=== PATIENT | male | born 1945 | race Caucasian/White ===

== ENCOUNTER 2016-04-28 04:34 | Observation (INO) | payer MEDICARE, OTHER ==
[2016-04-28] MEDS ORDERED: Sodium Chloride 0.9% 10 ML Syringe FLUSH PRN ×3 (04:40→06:48)
[2016-04-28] MEDS ORDERED: Famotidine 20 MG/2 ML SDV IVPUSH ONE (04:40)
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
[2016-04-28] MEDS ORDERED: Diltiazem 25 MG/5 ML SDV IVPUSH ONE ×2 (04:42→04:59)
[2016-04-28 05:13] LABS: CHLORIDE,CL 101 mmol/L (98-107); SODIUM,NA 139 mmol/L (136-145)
[2016-04-28] MEDS ORDERED: Diltiazem 100 MG in Sodium Chloride 0.9% 100 ML IV SCH (05:15)
[2016-04-28] MEDS: Sodium Chloride 0.9% 1,000 ML IV SCH ×2 (05:18→15:51)
[2016-04-28] MEDS ORDERED: Furosemide 40 MG/4 ML VIAL IVPUSH ONE (05:24)
[2016-04-28] MEDS ORDERED: Metoprolol Tartrate 5 MG/5 ML SDV IVPUSH ONE (05:25)
[2016-04-28] MEDS ORDERED: cefTRIAXone 1 GM in Sodium Chloride 0.9% 100 ML IV SCH (05:45)
[2016-04-28] MEDS ORDERED: Iopamidol 755 Mg/ML 100 ML Bottle IVPUSH ONE (06:22)
[2016-04-28] MEDS: metroNIDAZOLE/Normal Saline 500 MG in Premix Bag 1 BAG IV SCH ×2 (06:36→13:47)
[2016-04-28] MEDS ORDERED: Bisacodyl 10 MG Supp RECTAL PRN (06:41)
[2016-04-28] MEDS ORDERED: Acetaminophen 325 MG Tab PO PRN (06:48)
[2016-04-28] MEDS ORDERED: Temazepam 15 MG Cap PO PRN (06:48)
[2016-04-28] MEDS ORDERED: Albuterol/Ipratropium 3.0-0.5 MG/3 ML Neb Soln NEB PRN (06:48)
[2016-04-28] MEDS ORDERED: Albuterol 0.083% 2.5 MG/3 ML Neb Soln INH PRN (06:48)
[2016-04-28] MEDS ORDERED: traMADol 50 MG Tab PO PRN (06:50)
[2016-04-28] MEDS ORDERED: Finasteride 5 MG Tab PO SCH (08:00)
[2016-04-28] MEDS ORDERED: Aspirin 81 MG Tab.EC PO SCH (08:00)
[2016-04-28] MEDS ORDERED: Enoxaparin 60 MG/0.6 ML Syringe SUBCUT SCH (08:00)
[2016-04-28] MEDS ORDERED: Budesonide 0.5 MG/2 ML Neb Susp NEB SCH (08:00)
[2016-04-28] MEDS ORDERED: Allopurinol 100 MG Tab PO SCH (08:00)
[2016-04-28] MEDS ORDERED: Magnesium Oxide 400 MG Tab PO SCH (08:00)
[2016-04-28] MEDS ORDERED: Magnesium Hydroxide 400 MG/5 ML Susp 30 ML Cup PO SCH (08:00)
[2016-04-28] MEDS: Potassium Chloride 20 MEQ Tab.ER PO SCH ×2 (09:49→12:40)
[2016-04-28] MEDS: Albuterol/Ipratropium 3.0-0.5 MG/3 ML Neb Soln NEB SCH ×2 (10:01→13:47)
[2016-04-28] MEDS ORDERED: Sodium Chloride 0.9% 250 ML IV ONE (15:30)
[2016-04-28 15:36] VITALS: BP 93/63
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
[2016-04-28] MEDS ORDERED: Simvastatin 20 MG Tab PO SCH (20:00)
== END 2016-04-28 16:35 ==
LOC: LL.ED 04:34 → LL.MS 06:15
PROVIDERS: ADMIT Family Medicine; ATTEND Emergency Medicine
DX: J69.0 Pneumonitis due to inhalation of food and vomit (principal); I48.91 Unspecified atrial fibrillation; I50.9 Heart failure, unspecified; R41.0 Disorientation, unspecified; E66.01 Morbid (severe) obesity due to excess calories; E83.42 Hypomagnesemia; E87.2 Acidosis; I49.3 Ventricular premature depolarization; I25.10 Atherosclerotic heart disease of native coronary artery without angina pectoris; E11.9 Type 2 diabetes mellitus without complications; E78.5 Hyperlipidemia, unspecified; E88.09 Other disorders of plasma-protein metabolism, not elsewhere classified; F41.8 Other specified anxiety disorders; M19.90 Unspecified osteoarthritis, unspecified site; K21.9 Gastro-esophageal reflux disease without esophagitis; Z79.82 Long term (current) use of aspirin; Z79.899 Other long term (current) drug therapy; R11.2 Nausea with vomiting, unspecified; Z91.048 Other nonmedicinal substance allergy status; I25.2 Old myocardial infarction; J44.9 Chronic obstructive pulmonary disease, unspecified; G47.30 Sleep apnea, unspecified; M10.9 Gout, unspecified; Z85.038 Personal history of other malignant neoplasm of large intestine; Z95.5 Presence of coronary angioplasty implant and graft; E03.9 Hypothyroidism, unspecified; Z87.891 Personal history of nicotine dependence; I44.7 Left bundle-branch block, unspecified
CPT/HCPCS: 36000; 36415; 70450; 71010; 80053; 80061; 82550; 82553; 83036; 83605; 83735; 83880; 84443; 84484; 84550; 85025; 85379; 85610; 85730; 86318; 87040; 93005; 96365; 96366; 96367; 96368; 96372; 96375; 99285; G0378; J0696; J1650; J1940; J7030; J7050; 94640; 94664; J3490; S0028

== ENCOUNTER 2016-05-03 11:55 | Inpatient (IN) | payer MEDICARE, OTHER ==
[2016-05-03] MEDS ORDERED: Albuterol/Ipratropium 3.0-0.5 MG/3 ML Neb Soln NEB PRN (18:53)
[2016-05-03] MEDS ORDERED: Bisacodyl 10 MG Supp RECTAL PRN (18:53)
[2016-05-03] MEDS ORDERED: Nitroglycerin 0.4 MG Tab.SL SL PRN (18:53)
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
[2016-05-03] MEDS: Doxycycline 100 MG Cap PO SCH (20:27)
[2016-05-03] MEDS: Simvastatin 20 MG Tab PO SCH (20:27)
[2016-05-03] MEDS: Cefuroxime 250 MG Tab PO SCH (20:27)
[2016-05-04] MEDS ORDERED: Acetaminophen 325 MG Tab PO SCH
[2016-05-04] MEDS ORDERED: Rivaroxaban 10 MG Tab PO ONE ×2 (00:45→19:30)
[2016-05-04] MEDS: traMADol 50 MG Tab PO PRN (03:06)
[2016-05-04] MEDS: Polyethylene Glycol 3350 Powder 17 GM Packet PO SCH (07:43)
[2016-05-04] MEDS: Cefuroxime 250 MG Tab PO SCH ×2 (07:44→17:31)
[2016-05-04] MEDS: Multivitamin Tab PO SCH (07:44)
[2016-05-04] MEDS: Bumetanide 1 MG Tab PO SCH (07:45)
[2016-05-04] MEDS: Finasteride 5 MG Tab PO SCH (07:45)
[2016-05-04] MEDS: Aspirin 81 MG Tab.EC PO SCH (07:45)
[2016-05-04] MEDS: Omeprazole 20 MG Cap.CR PO SCH (07:46)
[2016-05-04] MEDS: Metoprolol Succinate 25 MG Tab.ER PO SCH (07:46)
[2016-05-04] MEDS: Doxycycline 100 MG Cap PO SCH ×2 (07:47→17:31)
[2016-05-04] MEDS: Allopurinol 100 MG Tab PO SCH (07:47)
[2016-05-04] MEDS ORDERED: Magnesium Hydroxide 400 MG/5 ML Susp 30 ML Cup PO SCH ×2 (08:00→14:00)
[2016-05-04] MEDS ORDERED: Tamsulosin 0.4 MG Cap.ER PO SCH (08:00)
[2016-05-04] MEDS ORDERED: Sennosides 8.6 MG Tab PO SCH (08:00)
[2016-05-04] MEDS ORDERED: Bumetanide 1 MG Tab PO PRN (14:00)
[2016-05-04] MEDS: Rivaroxaban 10 MG Tab PO SCH (17:31)
[2016-05-04] MEDS: Tamsulosin 0.4 MG Cap.ER PO SCH (20:23)
[2016-05-04] MEDS: Simvastatin 20 MG Tab PO SCH (20:23)
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
[2016-05-04] MEDS: Acetaminophen 325 MG Tab PO PRN (23:47)
[2016-05-05] MEDS: traMADol 50 MG Tab PO PRN ×2 (03:21→17:25)
[2016-05-05] MEDS: Cefuroxime 250 MG Tab PO SCH ×2 (07:53→17:24)
[2016-05-05] MEDS: Finasteride 5 MG Tab PO SCH (07:53)
[2016-05-05] MEDS: Doxycycline 100 MG Cap PO SCH ×2 (07:53→17:24)
[2016-05-05] MEDS: Bumetanide 1 MG Tab PO SCH (07:53)
[2016-05-05] MEDS: Metoprolol Succinate 25 MG Tab.ER PO SCH (07:54)
[2016-05-05] MEDS: Allopurinol 100 MG Tab PO SCH (07:54)
[2016-05-05] MEDS: Omeprazole 20 MG Cap.CR PO SCH (07:54)
[2016-05-05] MEDS: Aspirin 81 MG Tab.EC PO SCH (07:54)
[2016-05-05] MEDS: Multivitamin Tab PO SCH (07:54)
[2016-05-05] MEDS: Polyethylene Glycol 3350 Powder 17 GM Packet PO SCH ×2 (07:55→07:59)
[2016-05-05] MEDS: Rivaroxaban 10 MG Tab PO SCH (17:24)
[2016-05-05] MEDS: Simvastatin 20 MG Tab PO SCH (21:41)
[2016-05-05] MEDS: Tamsulosin 0.4 MG Cap.ER PO SCH (21:41)
[2016-05-06] MEDS: Temazepam 15 MG Cap PO PRN ×2 (00:25→22:19)
[2016-05-06] MEDS ORDERED: Menthol/Methyl Salicylate 85 GM Tube TOP PRN ×2 (05:58→07:00)
[2016-05-06] MEDS: traMADol 50 MG Tab PO PRN ×2 (06:04→22:19)
[2016-05-06] MEDS: Acetaminophen 325 MG Tab PO PRN (06:05)
[2016-05-06] MEDS: Bumetanide 1 MG Tab PO SCH (07:53)
[2016-05-06] MEDS: Aspirin 81 MG Tab.EC PO SCH (07:54)
[2016-05-06] MEDS: Omeprazole 20 MG Cap.CR PO SCH (07:54)
[2016-05-06] MEDS: Allopurinol 100 MG Tab PO SCH (07:56)
[2016-05-06] MEDS: Finasteride 5 MG Tab PO SCH (07:56)
[2016-05-06] MEDS: Doxycycline 100 MG Cap PO SCH ×2 (07:57→18:03)
[2016-05-06] MEDS: Multivitamin Tab PO SCH (07:57)
[2016-05-06] MEDS: Metoprolol Succinate 25 MG Tab.ER PO SCH (07:57)
[2016-05-06] MEDS: Polyethylene Glycol 3350 Powder 17 GM Packet PO SCH (07:58)
[2016-05-06] MEDS: Cefuroxime 250 MG Tab PO SCH ×2 (08:12→18:03)
[2016-05-06] MEDS: Rivaroxaban 10 MG Tab PO SCH (18:03)
[2016-05-06] MEDS: Tamsulosin 0.4 MG Cap.ER PO SCH (19:25)
[2016-05-06] MEDS: Simvastatin 20 MG Tab PO SCH (19:25)
[2016-05-07] MEDS ORDERED: Hydrocortisone 1% Crm 1.5 GM Packet TOP PRN (04:13)
[2016-05-07] MEDS: traMADol 50 MG Tab PO PRN ×2 (06:26→20:47)
[2016-05-07] MEDS: Allopurinol 100 MG Tab PO SCH (07:39)
[2016-05-07] MEDS: Aspirin 81 MG Tab.EC PO SCH (07:41)
[2016-05-07] MEDS: Doxycycline 100 MG Cap PO SCH ×2 (07:42→17:57)
[2016-05-07] MEDS: Finasteride 5 MG Tab PO SCH (07:43)
[2016-05-07] MEDS: Cefuroxime 250 MG Tab PO SCH ×2 (07:43→17:58)
[2016-05-07] MEDS: Omeprazole 20 MG Cap.CR PO SCH (07:44)
[2016-05-07] MEDS: Polyethylene Glycol 3350 Powder 17 GM Packet PO SCH (07:46)
[2016-05-07] MEDS: Multivitamin Tab PO SCH (07:47)
[2016-05-07] MEDS: Bumetanide 1 MG Tab PO SCH (08:02)
[2016-05-07] MEDS: Metoprolol Succinate 25 MG Tab.ER PO SCH (08:02)
[2016-05-07] MEDS: Rivaroxaban 10 MG Tab PO SCH (17:57)
[2016-05-07] MEDS: Tamsulosin 0.4 MG Cap.ER PO SCH (19:46)
[2016-05-07] MEDS: Simvastatin 20 MG Tab PO SCH (19:46)
[2016-05-07] MEDS: Temazepam 15 MG Cap PO PRN (20:47)
[2016-05-08] MEDS: traMADol 50 MG Tab PO PRN ×3 (04:07→19:45)
[2016-05-08] MEDS: Metoprolol Succinate 25 MG Tab.ER PO SCH (08:13)
[2016-05-08] MEDS: Allopurinol 100 MG Tab PO SCH (08:13)
[2016-05-08] MEDS: Cefuroxime 250 MG Tab PO SCH ×2 (08:14→17:22)
[2016-05-08] MEDS: Omeprazole 20 MG Cap.CR PO SCH (08:14)
[2016-05-08] MEDS: Finasteride 5 MG Tab PO SCH (08:14)
[2016-05-08] MEDS: Bumetanide 1 MG Tab PO SCH (08:14)
[2016-05-08] MEDS: Doxycycline 100 MG Cap PO SCH ×2 (08:15→17:22)
[2016-05-08] MEDS: Polyethylene Glycol 3350 Powder 17 GM Packet PO SCH (08:15)
[2016-05-08] MEDS: Multivitamin Tab PO SCH (08:15)
[2016-05-08] MEDS: Aspirin 81 MG Tab.EC PO SCH (08:15)
[2016-05-08] MEDS: Rivaroxaban 10 MG Tab PO SCH (17:21)
[2016-05-08] MEDS: Tamsulosin 0.4 MG Cap.ER PO SCH (19:45)
[2016-05-08] MEDS: Simvastatin 20 MG Tab PO SCH (19:45)
[2016-05-08] MEDS ORDERED: Polyethylene Glycol 3350 Powder 17 GM Packet PO PRN (20:33)
[2016-05-08] MEDS: Temazepam 15 MG Cap PO PRN (21:30)
[2016-05-09] MEDS: traMADol 50 MG Tab PO PRN ×3 (00:57→21:04)
[2016-05-09] MEDS: Finasteride 5 MG Tab PO SCH (07:43)
[2016-05-09] MEDS: Metoprolol Succinate 25 MG Tab.ER PO SCH (07:43)
[2016-05-09] MEDS: Doxycycline 100 MG Cap PO SCH ×2 (07:45→17:52)
[2016-05-09] MEDS: Allopurinol 100 MG Tab PO SCH (07:45)
[2016-05-09] MEDS: Multivitamin Tab PO SCH (07:45)
[2016-05-09] MEDS: Bumetanide 1 MG Tab PO SCH (07:45)
[2016-05-09] MEDS: Cefuroxime 250 MG Tab PO SCH ×2 (07:45→17:51)
[2016-05-09] MEDS: Omeprazole 20 MG Cap.CR PO SCH (07:46)
[2016-05-09] MEDS: Aspirin 81 MG Tab.EC PO SCH (07:46)
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
[2016-05-09] MEDS: Rivaroxaban 10 MG Tab PO SCH (17:52)
[2016-05-09] MEDS: Simvastatin 20 MG Tab PO SCH (19:21)
[2016-05-09] MEDS: Tamsulosin 0.4 MG Cap.ER PO SCH (19:21)
[2016-05-10] MEDS: Cefuroxime 250 MG Tab PO SCH ×2 (07:28→17:15)
[2016-05-10] MEDS: Omeprazole 20 MG Cap.CR PO SCH (07:29)
[2016-05-10] MEDS: Bumetanide 1 MG Tab PO SCH (07:30)
[2016-05-10] MEDS: Multivitamin Tab PO SCH (07:30)
[2016-05-10] MEDS: Allopurinol 100 MG Tab PO SCH (07:30)
[2016-05-10] MEDS: Metoprolol Succinate 25 MG Tab.ER PO SCH (07:31)
[2016-05-10] MEDS: Doxycycline 100 MG Cap PO SCH ×2 (07:31→17:15)
[2016-05-10] MEDS: Aspirin 81 MG Tab.EC PO SCH (07:32)
[2016-05-10] MEDS: Finasteride 5 MG Tab PO SCH (07:32)
[2016-05-10] MEDS: Rivaroxaban 10 MG Tab PO SCH (17:15)
[2016-05-10] MEDS: Tamsulosin 0.4 MG Cap.ER PO SCH (19:40)
[2016-05-10] MEDS: Simvastatin 20 MG Tab PO SCH (19:40)
[2016-05-10] MEDS: traMADol 50 MG Tab PO PRN (22:22)
[2016-05-11] MEDS: Temazepam 15 MG Cap PO PRN ×2 (00:54→22:59)
[2016-05-11] MEDS: Doxycycline 100 MG Cap PO SCH ×2 (07:29→18:31)
[2016-05-11] MEDS: Allopurinol 100 MG Tab PO SCH (07:29)
[2016-05-11] MEDS: Cefuroxime 250 MG Tab PO SCH ×2 (07:29→18:31)
[2016-05-11] MEDS: Bumetanide 1 MG Tab PO SCH (07:29)
[2016-05-11] MEDS: Finasteride 5 MG Tab PO SCH (07:30)
[2016-05-11] MEDS: Omeprazole 20 MG Cap.CR PO SCH (07:30)
[2016-05-11] MEDS: Multivitamin Tab PO SCH (07:30)
[2016-05-11] MEDS: Metoprolol Succinate 25 MG Tab.ER PO SCH (07:30)
[2016-05-11] MEDS: Aspirin 81 MG Tab.EC PO SCH (07:30)
[2016-05-11] MEDS: traMADol 50 MG Tab PO PRN ×2 (08:47→22:59)
[2016-05-11] MEDS: Rivaroxaban 10 MG Tab PO SCH (18:31)
[2016-05-11] MEDS: Tamsulosin 0.4 MG Cap.ER PO SCH (19:31)
[2016-05-11] MEDS: Simvastatin 20 MG Tab PO SCH (19:31)
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
[2016-05-12 07:29] LABS: CHLORIDE,CL 101 mmol/L (98-107); SODIUM,NA 139 mmol/L (136-145)
[2016-05-12] MEDS: Cefuroxime 250 MG Tab PO SCH ×2 (07:57→17:12)
[2016-05-12] MEDS: Aspirin 81 MG Tab.EC PO SCH (07:57)
[2016-05-12] MEDS: Omeprazole 20 MG Cap.CR PO SCH (07:57)
[2016-05-12] MEDS: Bumetanide 1 MG Tab PO SCH (07:57)
[2016-05-12] MEDS: Finasteride 5 MG Tab PO SCH (07:58)
[2016-05-12] MEDS: Multivitamin Tab PO SCH (07:58)
[2016-05-12] MEDS: Metoprolol Succinate 25 MG Tab.ER PO SCH (07:58)
[2016-05-12] MEDS: Allopurinol 100 MG Tab PO SCH (07:58)
[2016-05-12] MEDS: Doxycycline 100 MG Cap PO SCH ×2 (07:58→17:13)
[2016-05-12] MEDS: traMADol 50 MG Tab PO PRN (12:11)
[2016-05-12] MEDS ORDERED: traMADol 50 MG Tab PO ONE (15:50)
[2016-05-12] MEDS: Rivaroxaban 10 MG Tab PO SCH (17:13)
[2016-05-12] MEDS: Tamsulosin 0.4 MG Cap.ER PO SCH (19:52)
[2016-05-12] MEDS: Simvastatin 20 MG Tab PO SCH (19:52)
[2016-05-12] MEDS: Temazepam 15 MG Cap PO PRN (21:44)
[2016-05-13] MEDS: Multivitamin Tab PO SCH (08:31)
[2016-05-13] MEDS: Bumetanide 1 MG Tab PO SCH (08:31)
[2016-05-13] MEDS: Finasteride 5 MG Tab PO SCH (08:31)
[2016-05-13] MEDS: Omeprazole 20 MG Cap.CR PO SCH (08:31)
[2016-05-13] MEDS: Aspirin 81 MG Tab.EC PO SCH (08:31)
[2016-05-13] MEDS: Allopurinol 100 MG Tab PO SCH (08:32)
[2016-05-13] MEDS: Metoprolol Succinate 25 MG Tab.ER PO SCH (08:32)
[2016-05-13] MEDS: traMADol 50 MG Tab PO PRN (10:55)
[2016-05-13] MEDS: Rivaroxaban 10 MG Tab PO SCH (17:23)
[2016-05-13] MEDS: Simvastatin 20 MG Tab PO SCH (20:28)
[2016-05-13] MEDS: Tamsulosin 0.4 MG Cap.ER PO SCH (20:28)
[2016-05-13] MEDS: Temazepam 15 MG Cap PO PRN (22:16)
[2016-05-14] MEDS: Multivitamin Tab PO SCH (08:53)
[2016-05-14] MEDS: Allopurinol 100 MG Tab PO SCH (08:54)
[2016-05-14] MEDS: Omeprazole 20 MG Cap.CR PO SCH (08:54)
[2016-05-14] MEDS: Aspirin 81 MG Tab.EC PO SCH (08:54)
[2016-05-14] MEDS: Metoprolol Succinate 25 MG Tab.ER PO SCH (08:54)
[2016-05-14] MEDS: Bumetanide 1 MG Tab PO SCH (08:54)
[2016-05-14] MEDS: Finasteride 5 MG Tab PO SCH (08:54)
[2016-05-14] MEDS: Acetaminophen 325 MG Tab PO PRN (15:02)
[2016-05-14] MEDS: Rivaroxaban 10 MG Tab PO SCH (17:16)
[2016-05-14] MEDS: Simvastatin 20 MG Tab PO SCH (19:36)
[2016-05-14] MEDS: Tamsulosin 0.4 MG Cap.ER PO SCH (19:36)
[2016-05-15] MEDS: Multivitamin Tab PO SCH (08:03)
[2016-05-15] MEDS: Omeprazole 20 MG Cap.CR PO SCH (08:03)
[2016-05-15] MEDS: Aspirin 81 MG Tab.EC PO SCH (08:03)
[2016-05-15] MEDS: Metoprolol Succinate 25 MG Tab.ER PO SCH (08:03)
[2016-05-15] MEDS: Finasteride 5 MG Tab PO SCH (08:03)
[2016-05-15] MEDS: Bumetanide 1 MG Tab PO SCH (08:04)
[2016-05-15] MEDS: Allopurinol 100 MG Tab PO SCH (08:04)
[2016-05-15] MEDS: traMADol 50 MG Tab PO PRN (12:57)
[2016-05-15] MEDS: Acetaminophen 325 MG Tab PO PRN (12:59)
[2016-05-15] MEDS: Rivaroxaban 10 MG Tab PO SCH (17:34)
[2016-05-15] MEDS: Simvastatin 20 MG Tab PO SCH (19:29)
[2016-05-15] MEDS: Tamsulosin 0.4 MG Cap.ER PO SCH (19:29)
[2016-05-16] MEDS: Multivitamin Tab PO SCH (07:40)
[2016-05-16] MEDS: Omeprazole 20 MG Cap.CR PO SCH (07:40)
[2016-05-16] MEDS: Aspirin 81 MG Tab.EC PO SCH (07:41)
[2016-05-16] MEDS: Allopurinol 100 MG Tab PO SCH (07:41)
[2016-05-16] MEDS: Bumetanide 1 MG Tab PO SCH (07:41)
[2016-05-16] MEDS: Finasteride 5 MG Tab PO SCH (07:41)
[2016-05-16] MEDS: Metoprolol Succinate 25 MG Tab.ER PO SCH (07:41)
[2016-05-16] MEDS: traMADol 50 MG Tab PO PRN ×3 (09:56→21:05)
[2016-05-16] MEDS: Acetaminophen 325 MG Tab PO PRN ×2 (09:57→19:08)
[2016-05-16] MEDS: Magnesium Oxide 400 MG Tab PO SCH ×2 (12:27→17:20)
[2016-05-16] MEDS: Rivaroxaban 10 MG Tab PO SCH (17:20)
[2016-05-16] MEDS: Tamsulosin 0.4 MG Cap.ER PO SCH (19:08)
[2016-05-16] MEDS: Simvastatin 20 MG Tab PO SCH (19:08)
[2016-05-17] MEDS: Bumetanide 1 MG Tab PO SCH (08:36)
[2016-05-17] MEDS: Metoprolol Succinate 25 MG Tab.ER PO SCH (08:36)
[2016-05-17] MEDS: Finasteride 5 MG Tab PO SCH (08:36)
[2016-05-17] MEDS: Omeprazole 20 MG Cap.CR PO SCH (08:36)
[2016-05-17] MEDS: Allopurinol 100 MG Tab PO SCH (08:36)
[2016-05-17] MEDS: Multivitamin Tab PO SCH (08:36)
[2016-05-17] MEDS: Magnesium Oxide 400 MG Tab PO SCH ×2 (08:36→17:34)
[2016-05-17] MEDS: Aspirin 81 MG Tab.EC PO SCH (08:37)
[2016-05-17] MEDS ORDERED: Metoprolol Succinate 25 MG Tab.ER PO ONE (14:30)
[2016-05-17] MEDS: Acetaminophen 325 MG Tab PO PRN (15:40)
[2016-05-17] MEDS: traMADol 50 MG Tab PO PRN (15:41)
[2016-05-17] MEDS: Rivaroxaban 10 MG Tab PO SCH (17:34)
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
[2016-05-17] MEDS: Simvastatin 20 MG Tab PO SCH (20:05)
[2016-05-17] MEDS: Tamsulosin 0.4 MG Cap.ER PO SCH (20:05)
[2016-05-18] MEDS: Metoprolol Succinate 50 MG Tab.ER PO SCH (07:26)
[2016-05-18] MEDS: Allopurinol 100 MG Tab PO SCH (07:26)
[2016-05-18] MEDS: Magnesium Oxide 400 MG Tab PO SCH ×2 (07:27→20:06)
[2016-05-18] MEDS: Omeprazole 20 MG Cap.CR PO SCH (07:27)
[2016-05-18] MEDS: Bumetanide 1 MG Tab PO SCH (07:27)
[2016-05-18] MEDS: Aspirin 81 MG Tab.EC PO SCH (07:27)
[2016-05-18] MEDS: Multivitamin Tab PO SCH (07:27)
[2016-05-18] MEDS: Finasteride 5 MG Tab PO SCH (07:27)
[2016-05-18] MEDS: traMADol 50 MG Tab PO PRN (11:46)
[2016-05-18] MEDS: Tamsulosin 0.4 MG Cap.ER PO SCH (20:06)
[2016-05-18] MEDS: Rivaroxaban 10 MG Tab PO SCH (20:06)
[2016-05-18] MEDS: Simvastatin 20 MG Tab PO SCH (20:06)
[2016-05-19] MEDS: Ondansetron 4 MG Tab.DIS PO PRN (05:03)
[2016-05-19] MEDS: traMADol 50 MG Tab PO PRN (05:40)
[2016-05-19] MEDS: Finasteride 5 MG Tab PO SCH (07:39)
[2016-05-19] MEDS: Aspirin 81 MG Tab.EC PO SCH (07:39)
[2016-05-19] MEDS: Bumetanide 1 MG Tab PO SCH (07:40)
[2016-05-19] MEDS: Metoprolol Succinate 50 MG Tab.ER PO SCH (07:40)
[2016-05-19] MEDS: Omeprazole 20 MG Cap.CR PO SCH (07:40)
[2016-05-19] MEDS: Allopurinol 100 MG Tab PO SCH (07:42)
[2016-05-19] MEDS: Multivitamin Tab PO SCH (07:42)
[2016-05-19] MEDS: Magnesium Oxide 400 MG Tab PO SCH ×2 (07:42→17:08)
[2016-05-19] MEDS: Rivaroxaban 10 MG Tab PO SCH (17:08)
[2016-05-19] MEDS: Simvastatin 20 MG Tab PO SCH (19:48)
[2016-05-19] MEDS: Tamsulosin 0.4 MG Cap.ER PO SCH (19:48)
[2016-05-20] MEDS: Multivitamin Tab PO SCH (07:53)
[2016-05-20] MEDS: Omeprazole 20 MG Cap.CR PO SCH (07:53)
[2016-05-20] MEDS: Magnesium Oxide 400 MG Tab PO SCH ×2 (07:54→17:31)
[2016-05-20] MEDS: Aspirin 81 MG Tab.EC PO SCH (07:54)
[2016-05-20] MEDS: Finasteride 5 MG Tab PO SCH (07:54)
[2016-05-20] MEDS: Bumetanide 1 MG Tab PO SCH (07:54)
[2016-05-20] MEDS: Allopurinol 100 MG Tab PO SCH (07:54)
[2016-05-20] MEDS: Metoprolol Succinate 50 MG Tab.ER PO SCH (07:59)
[2016-05-20] MEDS: Acetaminophen 325 MG Tab PO PRN (08:59)
[2016-05-20] MEDS: traMADol 50 MG Tab PO PRN (08:59)
[2016-05-20] MEDS: Metoprolol Succinate 25 MG Tab.ER PO SCH (10:30)
[2016-05-20] MEDS: Fluconazole 100 MG Tab PO SCH (10:30)
[2016-05-20] MEDS: Nystatin Topical Powder 15 GM Bottle TOP SCH ×2 (10:33→17:32)
[2016-05-20] MEDS ORDERED: Digoxin 250 MCG Tab PO ONE ×2 (12:00→20:00)
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
[2016-05-20] MEDS: Rivaroxaban 10 MG Tab PO SCH (17:31)
[2016-05-20] MEDS: Simvastatin 20 MG Tab PO SCH (19:26)
[2016-05-21 07:37] LABS: CHLORIDE,CL 99 mmol/L (98-107); SODIUM,NA 138 mmol/L (136-145)
[2016-05-21] MEDS: Aspirin 81 MG Tab.EC PO SCH (07:40)
[2016-05-21] MEDS: Nystatin Topical Powder 15 GM Bottle TOP SCH ×2 (07:40→17:23)
[2016-05-21] MEDS: Magnesium Oxide 400 MG Tab PO SCH ×2 (07:40→17:21)
[2016-05-21] MEDS: Fluconazole 100 MG Tab PO SCH (07:40)
[2016-05-21] MEDS: Omeprazole 20 MG Cap.CR PO SCH (07:41)
[2016-05-21] MEDS: Allopurinol 100 MG Tab PO SCH (07:41)
[2016-05-21] MEDS: Metoprolol Succinate 25 MG Tab.ER PO SCH (07:41)
[2016-05-21] MEDS: Bumetanide 1 MG Tab PO SCH (07:41)
[2016-05-21] MEDS: Finasteride 5 MG Tab PO SCH (07:41)
[2016-05-21] MEDS: Multivitamin Tab PO SCH (07:41)
[2016-05-21] MEDS: traMADol 50 MG Tab PO PRN ×2 (14:40→21:20)
[2016-05-21] MEDS: Rivaroxaban 10 MG Tab PO SCH (17:21)
[2016-05-21] MEDS: Digoxin 125 MCG Tab PO SCH (17:22)
[2016-05-21] MEDS: Simvastatin 20 MG Tab PO SCH (21:19)
[2016-05-21] MEDS: Nystatin Topical Powder 15 GM Bottle TOP PRN (21:20)
[2016-05-21] MEDS: Temazepam 15 MG Cap PO PRN (21:20)
[2016-05-22] MEDS: Magnesium Oxide 400 MG Tab PO SCH ×2 (08:56→17:17)
[2016-05-22] MEDS: Finasteride 5 MG Tab PO SCH (08:56)
[2016-05-22] MEDS: Metoprolol Succinate 25 MG Tab.ER PO SCH (08:56)
[2016-05-22] MEDS: Fluconazole 100 MG Tab PO SCH (08:56)
[2016-05-22] MEDS: Bumetanide 1 MG Tab PO SCH (08:56)
[2016-05-22] MEDS: Aspirin 81 MG Tab.EC PO SCH (08:57)
[2016-05-22] MEDS: Omeprazole 20 MG Cap.CR PO SCH (08:57)
[2016-05-22] MEDS: Multivitamin Tab PO SCH (08:57)
[2016-05-22] MEDS: Allopurinol 100 MG Tab PO SCH (08:57)
[2016-05-22] MEDS: Nystatin Topical Powder 15 GM Bottle TOP SCH ×2 (09:30→17:17)
[2016-05-22] MEDS: Digoxin 125 MCG Tab PO SCH (17:16)
[2016-05-22] MEDS: Rivaroxaban 10 MG Tab PO SCH (17:17)
[2016-05-22] MEDS: Simvastatin 20 MG Tab PO SCH (19:38)
[2016-05-23] MEDS: Multivitamin Tab PO SCH (07:48)
[2016-05-23] MEDS: Metoprolol Succinate 25 MG Tab.ER PO SCH (07:48)
[2016-05-23] MEDS: Bumetanide 1 MG Tab PO SCH (07:48)
[2016-05-23] MEDS: Fluconazole 100 MG Tab PO SCH (07:48)
[2016-05-23] MEDS: Finasteride 5 MG Tab PO SCH (07:48)
[2016-05-23] MEDS: Aspirin 81 MG Tab.EC PO SCH (07:49)
[2016-05-23] MEDS: Magnesium Oxide 400 MG Tab PO SCH ×2 (07:49→17:16)
[2016-05-23] MEDS: Omeprazole 20 MG Cap.CR PO SCH (07:49)
[2016-05-23] MEDS: Nystatin Topical Powder 15 GM Bottle TOP SCH ×2 (07:49→17:16)
[2016-05-23] MEDS: Allopurinol 100 MG Tab PO SCH (07:49)
[2016-05-23] MEDS: Digoxin 125 MCG Tab PO SCH (17:16)
[2016-05-23] MEDS: Rivaroxaban 10 MG Tab PO SCH (17:16)
[2016-05-23] MEDS: traMADol 50 MG Tab PO PRN (20:19)
[2016-05-23] MEDS: Acetaminophen 325 MG Tab PO PRN (20:20)
[2016-05-23] MEDS: Simvastatin 20 MG Tab PO SCH (20:22)
[2016-05-23] MEDS: Temazepam 15 MG Cap PO PRN (20:22)
[2016-05-24] MEDS: Bumetanide 1 MG Tab PO SCH (07:58)
[2016-05-24] MEDS: Fluconazole 100 MG Tab PO SCH (07:58)
[2016-05-24] MEDS: Omeprazole 20 MG Cap.CR PO SCH (07:59)
[2016-05-24] MEDS: Finasteride 5 MG Tab PO SCH (07:59)
[2016-05-24] MEDS: Aspirin 81 MG Tab.EC PO SCH (07:59)
[2016-05-24] MEDS: Magnesium Oxide 400 MG Tab PO SCH ×2 (07:59→19:28)
[2016-05-24] MEDS: Allopurinol 100 MG Tab PO SCH (08:00)
[2016-05-24] MEDS: Nystatin Topical Powder 15 GM Bottle TOP SCH ×2 (08:00→19:28)
[2016-05-24] MEDS: Metoprolol Succinate 25 MG Tab.ER PO SCH (08:00)
[2016-05-24] MEDS: Multivitamin Tab PO SCH (08:00)
[2016-05-24] MEDS: traMADol 50 MG Tab PO PRN ×2 (08:05→21:43)
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
[2016-05-24] MEDS: Rivaroxaban 10 MG Tab PO SCH (19:28)
[2016-05-24] MEDS: Digoxin 125 MCG Tab PO SCH (19:28)
[2016-05-24] MEDS: Simvastatin 20 MG Tab PO SCH (19:29)
[2016-05-24] MEDS: Temazepam 15 MG Cap PO PRN (21:43)
[2016-05-25] MEDS: Allopurinol 100 MG Tab PO SCH (07:53)
[2016-05-25] MEDS: Nystatin Topical Powder 15 GM Bottle TOP SCH ×2 (07:53→17:31)
[2016-05-25] MEDS: Bumetanide 1 MG Tab PO SCH (07:53)
[2016-05-25] MEDS: Finasteride 5 MG Tab PO SCH (07:54)
[2016-05-25] MEDS: Omeprazole 20 MG Cap.CR PO SCH (07:54)
[2016-05-25] MEDS: Magnesium Oxide 400 MG Tab PO SCH ×2 (07:54→17:31)
[2016-05-25] MEDS: Aspirin 81 MG Tab.EC PO SCH (07:54)
[2016-05-25] MEDS: Multivitamin Tab PO SCH (07:54)
[2016-05-25] MEDS: Fluconazole 100 MG Tab PO SCH (07:54)
[2016-05-25] MEDS: Metoprolol Succinate 25 MG Tab.ER PO SCH (07:54)
[2016-05-25] MEDS: traMADol 50 MG Tab PO PRN ×2 (11:49→22:57)
[2016-05-25] MEDS: Rivaroxaban 10 MG Tab PO SCH (17:30)
[2016-05-25] MEDS: Digoxin 125 MCG Tab PO SCH (17:30)
[2016-05-25] MEDS: Simvastatin 20 MG Tab PO SCH (20:33)
[2016-05-25] MEDS: Temazepam 15 MG Cap PO PRN (22:06)
[2016-05-26] MEDS: Bumetanide 1 MG Tab PO SCH (08:23)
[2016-05-26] MEDS: Fluconazole 100 MG Tab PO SCH (08:23)
[2016-05-26] MEDS: Multivitamin Tab PO SCH (08:23)
[2016-05-26] MEDS: Omeprazole 20 MG Cap.CR PO SCH (08:24)
[2016-05-26] MEDS: Magnesium Oxide 400 MG Tab PO SCH ×2 (08:24→17:41)
[2016-05-26] MEDS: Nystatin Topical Powder 15 GM Bottle TOP SCH ×2 (08:24→19:42)
[2016-05-26] MEDS: Finasteride 5 MG Tab PO SCH (08:24)
[2016-05-26] MEDS: Aspirin 81 MG Tab.EC PO SCH (08:24)
[2016-05-26] MEDS: Metoprolol Succinate 25 MG Tab.ER PO SCH (08:25)
[2016-05-26] MEDS: Allopurinol 100 MG Tab PO SCH (08:25)
[2016-05-26] MEDS: Acetaminophen 325 MG Tab PO PRN (12:13)
[2016-05-26] MEDS: traMADol 50 MG Tab PO PRN ×2 (12:14→21:50)
[2016-05-26] MEDS: Rivaroxaban 10 MG Tab PO SCH (17:41)
[2016-05-26] MEDS: Digoxin 125 MCG Tab PO SCH (17:41)
[2016-05-26] MEDS: Simvastatin 20 MG Tab PO SCH (19:42)
[2016-05-26] MEDS: Temazepam 15 MG Cap PO PRN (22:06)
[2016-05-27] MEDS: Metoprolol Succinate 25 MG Tab.ER PO SCH (08:50)
[2016-05-27] MEDS: Multivitamin Tab PO SCH (08:52)
[2016-05-27] MEDS: Fluconazole 100 MG Tab PO SCH (08:52)
[2016-05-27] MEDS: Magnesium Oxide 400 MG Tab PO SCH ×2 (08:53→17:30)
[2016-05-27] MEDS: Omeprazole 20 MG Cap.CR PO SCH (08:54)
[2016-05-27] MEDS: Allopurinol 100 MG Tab PO SCH (08:54)
[2016-05-27] MEDS: Aspirin 81 MG Tab.EC PO SCH (08:56)
[2016-05-27] MEDS: Bumetanide 1 MG Tab PO SCH (08:56)
[2016-05-27] MEDS: Finasteride 5 MG Tab PO SCH (08:57)
[2016-05-27] MEDS: Nystatin Topical Powder 15 GM Bottle TOP SCH ×2 (08:59→17:30)
[2016-05-27] MEDS: Rivaroxaban 10 MG Tab PO SCH (17:30)
[2016-05-27] MEDS: Digoxin 125 MCG Tab PO SCH (17:30)
[2016-05-27] MEDS: Acetaminophen 325 MG Tab PO PRN (17:35)
[2016-05-27] MEDS: traMADol 50 MG Tab PO PRN ×2 (17:35→22:09)
[2016-05-27] MEDS: Simvastatin 20 MG Tab PO SCH (19:07)
[2016-05-27] MEDS: Temazepam 15 MG Cap PO PRN (22:09)
[2016-05-28] MEDS: Allopurinol 100 MG Tab PO SCH (08:05)
[2016-05-28] MEDS: Multivitamin Tab PO SCH (08:05)
[2016-05-28] MEDS: Nystatin Topical Powder 15 GM Bottle TOP SCH ×2 (08:05→18:23)
[2016-05-28] MEDS: Omeprazole 20 MG Cap.CR PO SCH (08:06)
[2016-05-28] MEDS: Aspirin 81 MG Tab.EC PO SCH (08:06)
[2016-05-28] MEDS: Bumetanide 1 MG Tab PO SCH (08:06)
[2016-05-28] MEDS: Metoprolol Succinate 25 MG Tab.ER PO SCH (08:06)
[2016-05-28] MEDS: Fluconazole 100 MG Tab PO SCH (08:06)
[2016-05-28] MEDS: Magnesium Oxide 400 MG Tab PO SCH ×2 (08:06→18:23)
[2016-05-28] MEDS: Finasteride 5 MG Tab PO SCH (08:06)
[2016-05-28] MEDS: Rivaroxaban 10 MG Tab PO SCH (18:23)
[2016-05-28] MEDS: Digoxin 125 MCG Tab PO SCH (18:23)
[2016-05-28] MEDS: Simvastatin 20 MG Tab PO SCH (19:58)
[2016-05-28] MEDS: traMADol 50 MG Tab PO PRN (22:49)
[2016-05-28] MEDS: Temazepam 15 MG Cap PO PRN (22:50)
[2016-05-29] MEDS: Bumetanide 1 MG Tab PO SCH (08:13)
[2016-05-29] MEDS: Omeprazole 20 MG Cap.CR PO SCH (08:13)
[2016-05-29] MEDS: Finasteride 5 MG Tab PO SCH (08:13)
[2016-05-29] MEDS: Magnesium Oxide 400 MG Tab PO SCH ×2 (08:13→17:16)
[2016-05-29] MEDS: Multivitamin Tab PO SCH (08:13)
[2016-05-29] MEDS: Allopurinol 100 MG Tab PO SCH (08:13)
[2016-05-29] MEDS: Metoprolol Succinate 25 MG Tab.ER PO SCH (08:13)
[2016-05-29] MEDS: Aspirin 81 MG Tab.EC PO SCH (08:13)
[2016-05-29] MEDS: Fluconazole 100 MG Tab PO SCH (08:13)
[2016-05-29] MEDS: Nystatin Topical Powder 15 GM Bottle TOP SCH ×2 (08:14→17:16)
[2016-05-29] MEDS: Acetaminophen 325 MG Tab PO PRN ×2 (08:19→20:33)
[2016-05-29] MEDS: Rivaroxaban 10 MG Tab PO SCH (17:16)
[2016-05-29] MEDS: Digoxin 125 MCG Tab PO SCH (17:16)
[2016-05-29] MEDS: Simvastatin 20 MG Tab PO SCH (20:31)
[2016-05-29] MEDS: Temazepam 15 MG Cap PO PRN (20:32)
[2016-05-29] MEDS: traMADol 50 MG Tab PO PRN (20:32)
[2016-05-30] MEDS: Magnesium Oxide 400 MG Tab PO SCH ×2 (08:20→17:21)
[2016-05-30] MEDS: Aspirin 81 MG Tab.EC PO SCH (08:20)
[2016-05-30] MEDS: Fluconazole 100 MG Tab PO SCH (08:20)
[2016-05-30] MEDS: Bumetanide 1 MG Tab PO SCH (08:20)
[2016-05-30] MEDS: Allopurinol 100 MG Tab PO SCH (08:20)
[2016-05-30] MEDS: Multivitamin Tab PO SCH (08:20)
[2016-05-30] MEDS: Omeprazole 20 MG Cap.CR PO SCH (08:20)
[2016-05-30] MEDS: Finasteride 5 MG Tab PO SCH (08:21)
[2016-05-30] MEDS: Nystatin Topical Powder 15 GM Bottle TOP SCH ×2 (08:21→17:22)
[2016-05-30] MEDS: Metoprolol Succinate 25 MG Tab.ER PO SCH (08:21)
[2016-05-30] MEDS: Rivaroxaban 10 MG Tab PO SCH (17:21)
[2016-05-30] MEDS: Digoxin 125 MCG Tab PO SCH (17:21)
[2016-05-30] MEDS: Simvastatin 20 MG Tab PO SCH (20:56)
[2016-05-30] MEDS: Temazepam 15 MG Cap PO PRN (20:57)
[2016-05-30] MEDS: traMADol 50 MG Tab PO PRN (20:57)
[2016-05-31] MEDS: Nystatin Topical Powder 15 GM Bottle TOP SCH ×2 (08:35→18:16)
[2016-05-31] MEDS: Bumetanide 1 MG Tab PO SCH (08:36)
[2016-05-31] MEDS: Allopurinol 100 MG Tab PO SCH (08:36)
[2016-05-31] MEDS: Metoprolol Succinate 25 MG Tab.ER PO SCH (08:36)
[2016-05-31] MEDS: Aspirin 81 MG Tab.EC PO SCH (08:37)
[2016-05-31] MEDS: Magnesium Oxide 400 MG Tab PO SCH ×2 (08:37→18:16)
[2016-05-31] MEDS: Multivitamin Tab PO SCH (08:37)
[2016-05-31] MEDS: Finasteride 5 MG Tab PO SCH (08:37)
[2016-05-31] MEDS: Omeprazole 20 MG Cap.CR PO SCH (08:37)
[2016-05-31] MEDS: Fluconazole 100 MG Tab PO SCH (08:38)
[2016-05-31] MEDS: Rivaroxaban 10 MG Tab PO SCH (18:16)
[2016-05-31] MEDS: Digoxin 125 MCG Tab PO SCH (18:16)
[2016-05-31] MEDS: Simvastatin 20 MG Tab PO SCH (20:36)
[2016-05-31] MEDS: Temazepam 15 MG Cap PO PRN (20:57)
[2016-05-31] MEDS: traMADol 50 MG Tab PO PRN (20:57)
[2016-05-31] MEDS: Acetaminophen 325 MG Tab PO PRN (20:59)
[2016-06-01] MEDS: Bumetanide 1 MG Tab PO SCH (07:26)
[2016-06-01] MEDS: Nystatin Topical Powder 15 GM Bottle TOP SCH ×2 (07:26→17:10)
[2016-06-01] MEDS: Magnesium Oxide 400 MG Tab PO SCH ×2 (07:26→17:10)
[2016-06-01] MEDS: Finasteride 5 MG Tab PO SCH (07:26)
[2016-06-01] MEDS: Aspirin 81 MG Tab.EC PO SCH (07:26)
[2016-06-01] MEDS: Omeprazole 20 MG Cap.CR PO SCH (07:26)
[2016-06-01] MEDS: Multivitamin Tab PO SCH (07:26)
[2016-06-01] MEDS: Fluconazole 100 MG Tab PO SCH (07:26)
[2016-06-01] MEDS: Metoprolol Succinate 25 MG Tab.ER PO SCH (07:27)
[2016-06-01] MEDS: Allopurinol 100 MG Tab PO SCH (07:27)
[2016-06-01] MEDS: traMADol 50 MG Tab PO PRN ×2 (12:20→21:06)
[2016-06-01] MEDS: Acetaminophen 325 MG Tab PO PRN ×2 (12:21→21:05)
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
[2016-06-01] MEDS: Rivaroxaban 10 MG Tab PO SCH (17:09)
[2016-06-01] MEDS: Digoxin 125 MCG Tab PO SCH (17:10)
[2016-06-01] MEDS: Simvastatin 20 MG Tab PO SCH (20:04)
[2016-06-01] MEDS: Temazepam 15 MG Cap PO PRN (21:05)
[2016-06-02 07:18] LABS: CHLORIDE,CL 100 mmol/L (98-107); SODIUM,NA 137 mmol/L (136-145)
[2016-06-02] MEDS: Bumetanide 1 MG Tab PO SCH (07:53)
[2016-06-02] MEDS: Nystatin Topical Powder 15 GM Bottle TOP SCH ×2 (07:54→20:39)
[2016-06-02] MEDS: Aspirin 81 MG Tab.EC PO SCH (07:54)
[2016-06-02] MEDS: Finasteride 5 MG Tab PO SCH (07:54)
[2016-06-02] MEDS: Multivitamin Tab PO SCH (07:54)
[2016-06-02] MEDS: Magnesium Oxide 400 MG Tab PO SCH ×2 (07:54→17:27)
[2016-06-02] MEDS: Omeprazole 20 MG Cap.CR PO SCH (07:54)
[2016-06-02] MEDS: Fluconazole 100 MG Tab PO SCH (07:54)
[2016-06-02] MEDS: Metoprolol Succinate 25 MG Tab.ER PO SCH (07:55)
[2016-06-02] MEDS: Allopurinol 100 MG Tab PO SCH (07:55)
[2016-06-02] MEDS: Rivaroxaban 10 MG Tab PO SCH (17:28)
[2016-06-02] MEDS: Digoxin 125 MCG Tab PO SCH (17:28)
[2016-06-02] MEDS: Simvastatin 20 MG Tab PO SCH (20:39)
[2016-06-02] MEDS: traMADol 50 MG Tab PO PRN (22:10)
[2016-06-02] MEDS: Acetaminophen 325 MG Tab PO PRN (22:11)
[2016-06-03] MEDS: Fluconazole 100 MG Tab PO SCH (07:40)
[2016-06-03] MEDS: Bumetanide 1 MG Tab PO SCH (07:40)
[2016-06-03] MEDS: Aspirin 81 MG Tab.EC PO SCH (07:40)
[2016-06-03] MEDS: Finasteride 5 MG Tab PO SCH (07:41)
[2016-06-03] MEDS: Multivitamin Tab PO SCH (07:41)
[2016-06-03] MEDS: Magnesium Oxide 400 MG Tab PO SCH ×2 (07:41→17:59)
[2016-06-03] MEDS: Metoprolol Succinate 25 MG Tab.ER PO SCH (07:41)
[2016-06-03] MEDS: Allopurinol 100 MG Tab PO SCH (07:41)
[2016-06-03] MEDS: Omeprazole 20 MG Cap.CR PO SCH (07:41)
[2016-06-03] MEDS: Nystatin Topical Powder 15 GM Bottle TOP SCH ×2 (07:42→19:02)
[2016-06-03] MEDS: traMADol 50 MG Tab PO PRN (16:23)
[2016-06-03] MEDS: Digoxin 125 MCG Tab PO SCH (17:59)
[2016-06-03] MEDS: Rivaroxaban 10 MG Tab PO SCH (18:00)
[2016-06-03] MEDS: Simvastatin 20 MG Tab PO SCH (19:02)
[2016-06-04] MEDS: Acetaminophen 325 MG Tab PO PRN ×2 (02:25→20:38)
[2016-06-04] MEDS: traMADol 50 MG Tab PO PRN ×2 (02:25→20:36)
[2016-06-04] MEDS: Multivitamin Tab PO SCH (08:07)
[2016-06-04] MEDS: Bumetanide 1 MG Tab PO SCH (08:07)
[2016-06-04] MEDS: Omeprazole 20 MG Cap.CR PO SCH (08:07)
[2016-06-04] MEDS: Magnesium Oxide 400 MG Tab PO SCH ×2 (08:07→18:25)
[2016-06-04] MEDS: Aspirin 81 MG Tab.EC PO SCH (08:07)
[2016-06-04] MEDS: Metoprolol Succinate 25 MG Tab.ER PO SCH (08:07)
[2016-06-04] MEDS: Finasteride 5 MG Tab PO SCH (08:08)
[2016-06-04] MEDS: Allopurinol 100 MG Tab PO SCH (08:08)
[2016-06-04] MEDS: Fluconazole 100 MG Tab PO SCH (08:08)
[2016-06-04] MEDS: Rivaroxaban 10 MG Tab PO SCH (18:25)
[2016-06-04] MEDS: Digoxin 125 MCG Tab PO SCH (18:25)
[2016-06-04] MEDS: Nystatin Topical Powder 15 GM Bottle TOP SCH ×2 (18:26→20:39)
[2016-06-04] MEDS: Simvastatin 20 MG Tab PO SCH (20:36)
[2016-06-04] MEDS: Temazepam 15 MG Cap PO PRN (20:38)
[2016-06-05] MEDS: Fluconazole 100 MG Tab PO SCH (07:56)
[2016-06-05] MEDS: Bumetanide 1 MG Tab PO SCH (07:56)
[2016-06-05] MEDS: Omeprazole 20 MG Cap.CR PO SCH (08:01)
[2016-06-05] MEDS: Magnesium Oxide 400 MG Tab PO SCH ×2 (08:01→18:30)
[2016-06-05] MEDS: Metoprolol Succinate 25 MG Tab.ER PO SCH (08:01)
[2016-06-05] MEDS: Aspirin 81 MG Tab.EC PO SCH (08:01)
[2016-06-05] MEDS: Nystatin Topical Powder 15 GM Bottle TOP SCH ×2 (08:02→22:01)
[2016-06-05] MEDS: Finasteride 5 MG Tab PO SCH (08:02)
[2016-06-05] MEDS: Multivitamin Tab PO SCH (08:02)
[2016-06-05] MEDS: Allopurinol 100 MG Tab PO SCH (08:02)
[2016-06-05] MEDS: traMADol 50 MG Tab PO PRN ×2 (09:44→21:51)
[2016-06-05] MEDS: Rivaroxaban 10 MG Tab PO SCH (18:30)
[2016-06-05] MEDS: Digoxin 125 MCG Tab PO SCH (18:30)
[2016-06-05] MEDS: Simvastatin 20 MG Tab PO SCH (21:52)
[2016-06-05] MEDS: Acetaminophen 325 MG Tab PO PRN (21:52)
[2016-06-05] MEDS: Temazepam 15 MG Cap PO PRN (21:52)
[2016-06-06] MEDS: Bumetanide 1 MG Tab PO SCH (08:16)
[2016-06-06] MEDS: Finasteride 5 MG Tab PO SCH (08:16)
[2016-06-06] MEDS: Fluconazole 100 MG Tab PO SCH (08:16)
[2016-06-06] MEDS: Allopurinol 100 MG Tab PO SCH (08:16)
[2016-06-06] MEDS: Magnesium Oxide 400 MG Tab PO SCH ×2 (08:16→18:03)
[2016-06-06] MEDS: Metoprolol Succinate 25 MG Tab.ER PO SCH (08:16)
[2016-06-06] MEDS: Omeprazole 20 MG Cap.CR PO SCH (08:16)
[2016-06-06] MEDS: Aspirin 81 MG Tab.EC PO SCH (08:16)
[2016-06-06] MEDS: Multivitamin Tab PO SCH (08:16)
[2016-06-06] MEDS: Nystatin Topical Powder 15 GM Bottle TOP SCH ×2 (08:17→21:44)
[2016-06-06] MEDS: Rivaroxaban 10 MG Tab PO SCH (18:02)
[2016-06-06] MEDS: Digoxin 125 MCG Tab PO SCH (18:03)
[2016-06-06] MEDS: Simvastatin 20 MG Tab PO SCH (21:41)
[2016-06-06] MEDS: Acetaminophen 325 MG Tab PO PRN (21:41)
[2016-06-06] MEDS: Temazepam 15 MG Cap PO PRN (21:41)
[2016-06-06] MEDS: traMADol 50 MG Tab PO PRN (21:42)
[2016-06-07] MEDS: Allopurinol 100 MG Tab PO SCH (07:38)
[2016-06-07] MEDS: Finasteride 5 MG Tab PO SCH (07:38)
[2016-06-07] MEDS: Multivitamin Tab PO SCH (07:38)
[2016-06-07] MEDS: Bumetanide 1 MG Tab PO SCH (07:38)
[2016-06-07] MEDS: Nystatin Topical Powder 15 GM Bottle TOP SCH ×2 (07:39→21:26)
[2016-06-07] MEDS: Aspirin 81 MG Tab.EC PO SCH (07:39)
[2016-06-07] MEDS: Metoprolol Succinate 25 MG Tab.ER PO SCH (07:39)
[2016-06-07] MEDS: Fluconazole 100 MG Tab PO SCH (07:39)
[2016-06-07] MEDS: Magnesium Oxide 400 MG Tab PO SCH ×2 (07:39→17:29)
[2016-06-07] MEDS: Omeprazole 20 MG Cap.CR PO SCH (07:39)
[2016-06-07] MEDS: Rivaroxaban 10 MG Tab PO SCH (17:28)
[2016-06-07] MEDS: Digoxin 125 MCG Tab PO SCH (17:29)
[2016-06-07] MEDS: traMADol 50 MG Tab PO PRN (21:27)
[2016-06-07] MEDS: Temazepam 15 MG Cap PO PRN (21:27)
[2016-06-07] MEDS: Acetaminophen 325 MG Tab PO PRN (21:27)
[2016-06-07] MEDS: Simvastatin 20 MG Tab PO SCH (21:27)
[2016-06-08] MEDS: Metoprolol Succinate 25 MG Tab.ER PO SCH (08:22)
[2016-06-08] MEDS: Bumetanide 1 MG Tab PO SCH (08:22)
[2016-06-08] MEDS: Magnesium Oxide 400 MG Tab PO SCH ×2 (08:23→17:18)
[2016-06-08] MEDS: Nystatin Topical Powder 15 GM Bottle TOP SCH ×2 (08:23→20:47)
[2016-06-08] MEDS: Omeprazole 20 MG Cap.CR PO SCH (08:23)
[2016-06-08] MEDS: Multivitamin Tab PO SCH (08:23)
[2016-06-08] MEDS: Allopurinol 100 MG Tab PO SCH (08:24)
[2016-06-08] MEDS: Aspirin 81 MG Tab.EC PO SCH (08:24)
[2016-06-08] MEDS: Finasteride 5 MG Tab PO SCH (08:24)
[2016-06-08] MEDS: Fluconazole 100 MG Tab PO SCH (08:24)
[2016-06-08] MEDS: Digoxin 125 MCG Tab PO SCH (17:18)
[2016-06-08] MEDS: Rivaroxaban 10 MG Tab PO SCH (17:18)
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
[2016-06-08] MEDS: traMADol 50 MG Tab PO PRN (20:44)
[2016-06-08] MEDS: Temazepam 15 MG Cap PO PRN (20:45)
[2016-06-08] MEDS: Simvastatin 20 MG Tab PO SCH (20:45)
[2016-06-08] MEDS: Acetaminophen 325 MG Tab PO PRN (20:45)
[2016-06-09] MEDS: Bumetanide 1 MG Tab PO SCH (08:33)
[2016-06-09] MEDS: Aspirin 81 MG Tab.EC PO SCH (08:34)
[2016-06-09] MEDS: Nystatin Topical Powder 15 GM Bottle TOP SCH ×2 (08:34→20:51)
[2016-06-09] MEDS: Omeprazole 20 MG Cap.CR PO SCH (08:34)
[2016-06-09] MEDS: traMADol 50 MG Tab PO PRN (12:12)
[2016-06-09] MEDS: Fluconazole 100 MG Tab PO SCH (17:12)
[2016-06-09] MEDS: Rivaroxaban 10 MG Tab PO SCH (17:13)
[2016-06-09] MEDS: Metoprolol Succinate 25 MG Tab.ER PO SCH (17:13)
[2016-06-09] MEDS: Digoxin 125 MCG Tab PO SCH (17:14)
[2016-06-09] MEDS: Allopurinol 100 MG Tab PO SCH (17:16)
[2016-06-09] MEDS: Simvastatin 20 MG Tab PO SCH (20:49)
[2016-06-09] MEDS: Acetaminophen 325 MG Tab PO PRN (20:49)
[2016-06-09] MEDS: Zolpidem 5 MG Tab PO SCH (20:49)
[2016-06-10] MEDS: Aspirin 81 MG Tab.EC PO SCH (08:03)
[2016-06-10] MEDS: Bumetanide 1 MG Tab PO SCH (08:03)
[2016-06-10] MEDS: Omeprazole 20 MG Cap.CR PO SCH (08:03)
[2016-06-10] MEDS: Acetaminophen 325 MG Tab PO PRN ×2 (14:52→23:44)
[2016-06-10] MEDS: traMADol 50 MG Tab PO PRN ×2 (14:53→23:58)
[2016-06-10] MEDS: Nystatin Topical Powder 15 GM Bottle TOP SCH ×2 (14:55→19:16)
[2016-06-10] MEDS: Digoxin 125 MCG Tab PO SCH (17:43)
[2016-06-10] MEDS: Rivaroxaban 10 MG Tab PO SCH (17:43)
[2016-06-10] MEDS: Fluconazole 100 MG Tab PO SCH (17:43)
[2016-06-10] MEDS: Metoprolol Succinate 25 MG Tab.ER PO SCH (17:43)
[2016-06-10] MEDS: Allopurinol 100 MG Tab PO SCH (17:43)
[2016-06-10] MEDS: Zolpidem 5 MG Tab PO SCH (19:16)
[2016-06-10] MEDS: Simvastatin 20 MG Tab PO SCH (19:16)
[2016-06-11] MEDS: Nystatin Topical Powder 15 GM Bottle TOP SCH ×2 (08:22→19:40)
[2016-06-11] MEDS: Omeprazole 20 MG Cap.CR PO SCH (08:23)
[2016-06-11] MEDS: Bumetanide 1 MG Tab PO SCH (08:23)
[2016-06-11] MEDS: Aspirin 81 MG Tab.EC PO SCH (08:23)
[2016-06-11] MEDS: Allopurinol 100 MG Tab PO SCH (18:21)
[2016-06-11] MEDS: Rivaroxaban 10 MG Tab PO SCH (18:21)
[2016-06-11] MEDS: Digoxin 125 MCG Tab PO SCH (18:21)
[2016-06-11] MEDS: Metoprolol Succinate 25 MG Tab.ER PO SCH (18:21)
[2016-06-11] MEDS: Fluconazole 100 MG Tab PO SCH (18:21)
[2016-06-11] MEDS: Nystatin Topical Powder 15 GM Bottle TOP PRN (19:39)
[2016-06-11] MEDS: Zolpidem 5 MG Tab PO SCH (19:39)
[2016-06-11] MEDS: Simvastatin 20 MG Tab PO SCH (19:39)
[2016-06-12] MEDS: Nystatin Topical Powder 15 GM Bottle TOP SCH ×3 (08:00→20:34)
[2016-06-12] MEDS: Bumetanide 1 MG Tab PO SCH (08:03)
[2016-06-12] MEDS: Omeprazole 20 MG Cap.CR PO SCH (08:03)
[2016-06-12] MEDS: Aspirin 81 MG Tab.EC PO SCH (08:03)
[2016-06-12] MEDS: Digoxin 125 MCG Tab PO SCH (17:19)
[2016-06-12] MEDS: Rivaroxaban 10 MG Tab PO SCH (17:19)
[2016-06-12] MEDS: Fluconazole 100 MG Tab PO SCH (17:19)
[2016-06-12] MEDS: Metoprolol Succinate 25 MG Tab.ER PO SCH (17:19)
[2016-06-12] MEDS: Allopurinol 100 MG Tab PO SCH (17:19)
[2016-06-12] MEDS: Simvastatin 20 MG Tab PO SCH (20:27)
[2016-06-12] MEDS: Zolpidem 5 MG Tab PO SCH (20:27)
[2016-06-12] MEDS: Acetaminophen 325 MG Tab PO PRN (23:09)
[2016-06-13] MEDS: Omeprazole 20 MG Cap.CR PO SCH (07:46)
[2016-06-13] MEDS: Bumetanide 1 MG Tab PO SCH (07:46)
[2016-06-13] MEDS: Aspirin 81 MG Tab.EC PO SCH (07:46)
[2016-06-13] MEDS: Nystatin Topical Powder 15 GM Bottle TOP SCH ×2 (07:46→20:21)
[2016-06-13] MEDS: Acetaminophen 325 MG Tab PO PRN ×2 (16:09→22:19)
[2016-06-13] MEDS: traMADol 50 MG Tab PO PRN (16:10)
[2016-06-13] MEDS: Metoprolol Succinate 25 MG Tab.ER PO SCH (17:31)
[2016-06-13] MEDS: Fluconazole 100 MG Tab PO SCH (17:32)
[2016-06-13] MEDS: Digoxin 125 MCG Tab PO SCH (17:32)
[2016-06-13] MEDS: Rivaroxaban 10 MG Tab PO SCH (17:33)
[2016-06-13] MEDS: Allopurinol 100 MG Tab PO SCH (17:33)
[2016-06-13] MEDS: Simvastatin 20 MG Tab PO SCH (20:20)
[2016-06-13] MEDS: Zolpidem 5 MG Tab PO SCH (20:20)
[2016-06-14] MEDS: Omeprazole 20 MG Cap.CR PO SCH (07:36)
[2016-06-14] MEDS: Aspirin 81 MG Tab.EC PO SCH (07:36)
[2016-06-14] MEDS: Bumetanide 1 MG Tab PO SCH (07:37)
[2016-06-14] MEDS: Nystatin Topical Powder 15 GM Bottle TOP SCH ×2 (07:38→19:52)
[2016-06-14] MEDS: traMADol 50 MG Tab PO PRN (12:03)
[2016-06-14] MEDS: Fluconazole 100 MG Tab PO SCH (17:08)
[2016-06-14] MEDS: Digoxin 125 MCG Tab PO SCH (17:09)
[2016-06-14] MEDS: Rivaroxaban 10 MG Tab PO SCH (17:13)
[2016-06-14] MEDS: Allopurinol 100 MG Tab PO SCH (17:13)
[2016-06-14] MEDS: Metoprolol Succinate 25 MG Tab.ER PO SCH (17:14)
[2016-06-14] MEDS: Simvastatin 20 MG Tab PO SCH (19:53)
[2016-06-14] MEDS: Zolpidem 5 MG Tab PO SCH (19:55)
[2016-06-15] MEDS: Bumetanide 1 MG Tab PO SCH (08:29)
[2016-06-15] MEDS: Omeprazole 20 MG Cap.CR PO SCH (08:29)
[2016-06-15] MEDS: Nystatin Topical Powder 15 GM Bottle TOP SCH ×2 (08:29→19:26)
[2016-06-15] MEDS: Aspirin 81 MG Tab.EC PO SCH (08:30)
[2016-06-15] MEDS: Rivaroxaban 10 MG Tab PO SCH (17:37)
[2016-06-15] MEDS: Allopurinol 100 MG Tab PO SCH (17:38)
[2016-06-15] MEDS: Metoprolol Succinate 25 MG Tab.ER PO SCH (17:38)
[2016-06-15] MEDS: Digoxin 125 MCG Tab PO SCH (17:38)
[2016-06-15] MEDS: Fluconazole 100 MG Tab PO SCH (17:39)
[2016-06-15] MEDS: Acetaminophen 325 MG Tab PO PRN (19:26)
[2016-06-15] MEDS: Simvastatin 20 MG Tab PO SCH (19:26)
[2016-06-15] MEDS: Zolpidem 5 MG Tab PO SCH (19:26)
[2016-06-15] MEDS: traMADol 50 MG Tab PO PRN ×2 (19:27→23:44)
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
[2016-06-16] MEDS: Aspirin 81 MG Tab.EC PO SCH (08:26)
[2016-06-16] MEDS: Bumetanide 1 MG Tab PO SCH (08:26)
[2016-06-16] MEDS: Omeprazole 20 MG Cap.CR PO SCH (08:26)
[2016-06-16] MEDS: Nystatin Topical Powder 15 GM Bottle TOP SCH ×2 (08:26→21:04)
[2016-06-16] MEDS: Digoxin 125 MCG Tab PO SCH (17:56)
[2016-06-16] MEDS: Rivaroxaban 10 MG Tab PO SCH (17:57)
[2016-06-16] MEDS: Fluconazole 100 MG Tab PO SCH (17:57)
[2016-06-16] MEDS: Allopurinol 100 MG Tab PO SCH (17:57)
[2016-06-16] MEDS: Metoprolol Succinate 25 MG Tab.ER PO SCH (17:57)
[2016-06-16] MEDS: Acetaminophen 325 MG Tab PO PRN (17:58)
[2016-06-16] MEDS: Zolpidem 5 MG Tab PO SCH (21:04)
[2016-06-16] MEDS: Simvastatin 20 MG Tab PO SCH (21:04)
[2016-06-16] MEDS: traMADol 50 MG Tab PO PRN (21:05)
[2016-06-17] MEDS: Bumetanide 1 MG Tab PO SCH (07:14)
[2016-06-17] MEDS: Aspirin 81 MG Tab.EC PO SCH (07:14)
[2016-06-17] MEDS: Nystatin Topical Powder 15 GM Bottle TOP SCH ×2 (07:14→20:48)
[2016-06-17] MEDS: Omeprazole 20 MG Cap.CR PO SCH (07:15)
[2016-06-17] MEDS: traMADol 50 MG Tab PO PRN (14:59)
[2016-06-17] MEDS: Metoprolol Succinate 25 MG Tab.ER PO SCH (18:45)
[2016-06-17] MEDS: Digoxin 125 MCG Tab PO SCH (18:45)
[2016-06-17] MEDS: Rivaroxaban 10 MG Tab PO SCH (18:46)
[2016-06-17] MEDS: Fluconazole 100 MG Tab PO SCH (18:46)
[2016-06-17] MEDS: Allopurinol 100 MG Tab PO SCH (18:46)
[2016-06-17] MEDS: Zolpidem 5 MG Tab PO SCH (20:46)
[2016-06-17] MEDS: Simvastatin 20 MG Tab PO SCH (20:46)
[2016-06-17] MEDS: Acetaminophen 325 MG Tab PO PRN (21:17)
[2016-06-18] MEDS: Bumetanide 1 MG Tab PO SCH (07:50)
[2016-06-18] MEDS: Aspirin 81 MG Tab.EC PO SCH (07:51)
[2016-06-18] MEDS: Omeprazole 20 MG Cap.CR PO SCH (07:51)
[2016-06-18] MEDS: Nystatin Topical Powder 15 GM Bottle TOP SCH ×2 (07:53→20:16)
[2016-06-18] MEDS: Digoxin 125 MCG Tab PO SCH (17:38)
[2016-06-18] MEDS: Rivaroxaban 10 MG Tab PO SCH (17:39)
[2016-06-18] MEDS: Metoprolol Succinate 25 MG Tab.ER PO SCH (17:39)
[2016-06-18] MEDS: Fluconazole 100 MG Tab PO SCH (17:40)
[2016-06-18] MEDS: Allopurinol 100 MG Tab PO SCH (17:40)
[2016-06-18] MEDS: Zolpidem 5 MG Tab PO SCH (20:15)
[2016-06-18] MEDS: Simvastatin 20 MG Tab PO SCH (20:15)
[2016-06-19] MEDS: traMADol 50 MG Tab PO PRN ×3 (01:04→14:09)
[2016-06-19] MEDS: Omeprazole 20 MG Cap.CR PO SCH (08:44)
[2016-06-19] MEDS: Aspirin 81 MG Tab.EC PO SCH (08:44)
[2016-06-19] MEDS: Nystatin Topical Powder 15 GM Bottle TOP SCH (08:44)
[2016-06-19] MEDS: Bumetanide 1 MG Tab PO SCH (08:44)
[2016-06-19] MEDS: Acetaminophen 325 MG Tab PO PRN ×2 (09:36→20:34)
[2016-06-19] MEDS: Metoprolol Succinate 25 MG Tab.ER PO SCH (17:47)
[2016-06-19] MEDS: Digoxin 125 MCG Tab PO SCH (17:47)
[2016-06-19] MEDS: Rivaroxaban 10 MG Tab PO SCH (17:47)
[2016-06-19] MEDS: Allopurinol 100 MG Tab PO SCH (17:48)
[2016-06-19] MEDS: Zolpidem 5 MG Tab PO SCH (20:33)
[2016-06-19] MEDS: Simvastatin 20 MG Tab PO SCH (20:33)
[2016-06-20] MEDS: Bumetanide 1 MG Tab PO SCH (07:49)
[2016-06-20] MEDS: Omeprazole 20 MG Cap.CR PO SCH (07:50)
[2016-06-20] MEDS: Aspirin 81 MG Tab.EC PO SCH (07:50)
[2016-06-20] MEDS: traMADol 50 MG Tab PO PRN ×2 (13:33→22:10)
[2016-06-20] MEDS: Digoxin 125 MCG Tab PO SCH (18:14)
[2016-06-20] MEDS: Metoprolol Succinate 25 MG Tab.ER PO SCH (18:14)
[2016-06-20] MEDS: Rivaroxaban 10 MG Tab PO SCH (18:14)
[2016-06-20] MEDS: Allopurinol 100 MG Tab PO SCH (18:15)
[2016-06-20] MEDS: Simvastatin 20 MG Tab PO SCH (22:06)
[2016-06-20] MEDS: Zolpidem 5 MG Tab PO SCH (22:06)
[2016-06-20] MEDS: Acetaminophen 325 MG Tab PO PRN (22:10)
[2016-06-21] MEDS: Aspirin 81 MG Tab.EC PO SCH (08:00)
[2016-06-21] MEDS: Bumetanide 1 MG Tab PO SCH (08:00)
[2016-06-21] MEDS: Omeprazole 20 MG Cap.CR PO SCH (08:01)
[2016-06-21] MEDS: Digoxin 125 MCG Tab PO SCH (17:28)
[2016-06-21] MEDS: Metoprolol Succinate 25 MG Tab.ER PO SCH (17:28)
[2016-06-21] MEDS: Allopurinol 100 MG Tab PO SCH (17:29)
[2016-06-21] MEDS: Rivaroxaban 10 MG Tab PO SCH (17:29)
[2016-06-21] MEDS: traMADol 50 MG Tab PO PRN (20:40)
[2016-06-21] MEDS: Acetaminophen 325 MG Tab PO PRN (20:42)
[2016-06-21] MEDS: Simvastatin 20 MG Tab PO SCH (22:32)
[2016-06-21] MEDS: Zolpidem 5 MG Tab PO SCH (22:33)
[2016-06-22] MEDS: Bumetanide 1 MG Tab PO SCH (08:04)
[2016-06-22] MEDS: Aspirin 81 MG Tab.EC PO SCH (08:05)
[2016-06-22] MEDS: Omeprazole 20 MG Cap.CR PO SCH (08:05)
[2016-06-22] MEDS: traMADol 50 MG Tab PO PRN (10:34)
[2016-06-22] MEDS: Acetaminophen 325 MG Tab PO PRN ×2 (10:35→21:31)
[2016-06-22] MEDS: Nystatin Topical Powder 15 GM Bottle TOP PRN (10:35)
[2016-06-22] MEDS: Ondansetron 4 MG Tab.DIS PO PRN (19:16)
[2016-06-22] MEDS: Rivaroxaban 10 MG Tab PO SCH (21:30)
[2016-06-22] MEDS: Simvastatin 20 MG Tab PO SCH (21:31)
[2016-06-22] MEDS: Zolpidem 5 MG Tab PO SCH (21:31)
[2016-06-22] MEDS: Allopurinol 100 MG Tab PO SCH (21:32)
[2016-06-22] MEDS: Digoxin 125 MCG Tab PO SCH (21:33)
[2016-06-22] MEDS: Metoprolol Succinate 25 MG Tab.ER PO SCH (21:33)
[2016-06-23] MEDS ORDERED: Metolazone 2.5 MG Tab PO SCH (08:00)
[2016-06-23] MEDS: Bumetanide 1 MG Tab PO SCH (08:47)
[2016-06-23] MEDS: Aspirin 81 MG Tab.EC PO SCH (08:48)
[2016-06-23] MEDS: Omeprazole 20 MG Cap.CR PO SCH (08:48)
[2016-06-23] MEDS: traMADol 50 MG Tab PO PRN ×2 (13:58→22:00)
[2016-06-23] MEDS: Acetaminophen 325 MG Tab PO PRN ×2 (13:58→22:00)
[2016-06-23] MEDS: Digoxin 125 MCG Tab PO SCH (17:25)
[2016-06-23] MEDS: Rivaroxaban 10 MG Tab PO SCH (17:26)
[2016-06-23] MEDS: Metoprolol Succinate 25 MG Tab.ER PO SCH (17:26)
[2016-06-23] MEDS: Allopurinol 100 MG Tab PO SCH (17:26)
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
[2016-06-23] MEDS: Zolpidem 5 MG Tab PO SCH (22:00)
[2016-06-23] MEDS: Simvastatin 20 MG Tab PO SCH (22:00)
[2016-06-24] MEDS: Omeprazole 20 MG Cap.CR PO SCH (07:46)
[2016-06-24] MEDS: Bumetanide 1 MG Tab PO SCH (07:46)
[2016-06-24] MEDS: Aspirin 81 MG Tab.EC PO SCH (07:47)
[2016-06-24] MEDS ORDERED: Metolazone 2.5 MG Tab PO ONE (08:00)
[2016-06-24] MEDS: Acetaminophen 325 MG Tab PO PRN (11:46)
[2016-06-24] MEDS: traMADol 50 MG Tab PO PRN (11:47)
[2016-06-24] MEDS: Ondansetron 4 MG Tab.DIS PO PRN (19:06)
[2016-06-24] MEDS: Digoxin 125 MCG Tab PO SCH (20:20)
[2016-06-24] MEDS: Rivaroxaban 10 MG Tab PO SCH (20:20)
[2016-06-24] MEDS: Allopurinol 100 MG Tab PO SCH (20:21)
[2016-06-24] MEDS: Metoprolol Succinate 25 MG Tab.ER PO SCH (20:21)
[2016-06-24] MEDS: Nystatin Topical Powder 15 GM Bottle TOP PRN (20:38)
[2016-06-24] MEDS: Simvastatin 20 MG Tab PO SCH (21:26)
[2016-06-24] MEDS: Zolpidem 5 MG Tab PO SCH (21:26)
[2016-06-25] MEDS ORDERED: Metolazone 2.5 MG Tab PO SCH (08:00)
[2016-06-25] MEDS: Omeprazole 20 MG Cap.CR PO SCH (08:34)
[2016-06-25] MEDS: Aspirin 81 MG Tab.EC PO SCH (08:35)
[2016-06-25] MEDS: Bumetanide 1 MG Tab PO SCH (08:35)
[2016-06-25] MEDS: Nystatin Topical Powder 15 GM Bottle TOP PRN (08:36)
[2016-06-25] MEDS: Digoxin 125 MCG Tab PO SCH (17:18)
[2016-06-25] MEDS: Allopurinol 100 MG Tab PO SCH (17:19)
[2016-06-25] MEDS: Rivaroxaban 10 MG Tab PO SCH (17:19)
[2016-06-25] MEDS: Metoprolol Succinate 25 MG Tab.ER PO SCH (17:20)
[2016-06-25] MEDS: Zolpidem 5 MG Tab PO SCH (23:00)
[2016-06-25] MEDS: Simvastatin 20 MG Tab PO SCH (23:00)
[2016-06-25] MEDS: traMADol 50 MG Tab PO PRN (23:00)
[2016-06-26] MEDS: Bumetanide 1 MG Tab PO SCH (07:45)
[2016-06-26] MEDS: Omeprazole 20 MG Cap.CR PO SCH (07:46)
[2016-06-26] MEDS: Aspirin 81 MG Tab.EC PO SCH (07:46)
[2016-06-26] MEDS: Metoprolol Succinate 25 MG Tab.ER PO SCH (17:14)
[2016-06-26] MEDS: Digoxin 125 MCG Tab PO SCH (17:14)
[2016-06-26] MEDS: Allopurinol 100 MG Tab PO SCH (17:15)
[2016-06-26] MEDS: Rivaroxaban 10 MG Tab PO SCH (17:15)
[2016-06-26] MEDS: Simvastatin 20 MG Tab PO SCH (21:49)
[2016-06-26] MEDS: traMADol 50 MG Tab PO PRN (21:49)
[2016-06-26] MEDS: Zolpidem 5 MG Tab PO SCH (21:50)
[2016-06-27] MEDS: Nystatin Topical Powder 15 GM Bottle TOP PRN (00:45)
[2016-06-27] MEDS: Omeprazole 20 MG Cap.CR PO SCH (09:11)
[2016-06-27] MEDS: Bumetanide 1 MG Tab PO SCH (09:12)
[2016-06-27] MEDS: Aspirin 81 MG Tab.EC PO SCH (09:13)
[2016-06-27] MEDS: Digoxin 125 MCG Tab PO SCH (17:33)
[2016-06-27] MEDS: Metoprolol Succinate 25 MG Tab.ER PO SCH (17:33)
[2016-06-27] MEDS: Allopurinol 100 MG Tab PO SCH (17:34)
[2016-06-27] MEDS: Rivaroxaban 10 MG Tab PO SCH (17:34)
[2016-06-27] MEDS: Simvastatin 20 MG Tab PO SCH (22:24)
[2016-06-27] MEDS: traMADol 50 MG Tab PO PRN (22:24)
[2016-06-27] MEDS: Zolpidem 5 MG Tab PO SCH (22:24)
[2016-06-28 07:20] LABS: O2 DELIVERY DEVICE ROOM AIR
[2016-06-28 08:05] LABS: CHLORIDE,CL 94 mmol/L (98-107); SODIUM,NA 136 mmol/L (136-145)
[2016-06-28 08:06] LABS: BICARBONATE,VENOUS 36 mmol/L (23-28); O2 SATURATION VENOUS 96 %; PCO2 VENOUS 48 mmHG (41-51); PH,VENOUS 7.49 (7.31-7.41); PO2 VENOUS 74 mmHG
[2016-06-28 08:07] LABS: BASE EXCESS VENOUS 13 mmol/L ((-2)-3)
[2016-06-28] MEDS: Omeprazole 20 MG Cap.CR PO SCH (08:12)
[2016-06-28] MEDS ORDERED: Potassium Chloride 20 MEQ Tab.ER PO ONE ×3 (09:30→20:00)
[2016-06-28] MEDS ORDERED: Spironolactone 25 MG Tab PO ONE (09:30)
[2016-06-28] MEDS ORDERED: Magnesium Oxide 400 MG Tab PO ONE (09:45)
[2016-06-28] MEDS: Potassium Chloride 20 MEQ Tab.ER PO SCH ×2 (12:24→17:50)
[2016-06-28] MEDS: Metoprolol Succinate 25 MG Tab.ER PO SCH (17:47)
[2016-06-28] MEDS: Rivaroxaban 10 MG Tab PO SCH (17:48)
[2016-06-28] MEDS: Allopurinol 100 MG Tab PO SCH (17:48)
[2016-06-28] MEDS: Magnesium Oxide 400 MG Tab PO SCH (17:48)
[2016-06-28] MEDS: Spironolactone 25 MG Tab PO SCH (17:49)
[2016-06-28] MEDS: Digoxin 125 MCG Tab PO SCH (17:49)
[2016-06-28] MEDS ORDERED: Potassium Chloride 20 MEQ Tab.ER ONE (22:22)
[2016-06-28] MEDS: Zolpidem 5 MG Tab PO SCH (22:26)
[2016-06-28] MEDS: traMADol 50 MG Tab PO PRN (22:26)
[2016-06-28] MEDS: Acetaminophen 325 MG Tab PO PRN (22:26)
[2016-06-28] MEDS: Simvastatin 20 MG Tab PO SCH (22:26)
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
[2016-06-29] MEDS: Bumetanide 1 MG Tab PO SCH (07:53)
[2016-06-29] MEDS: Spironolactone 25 MG Tab PO SCH ×2 (07:53→17:19)
[2016-06-29] MEDS: Nystatin Topical Powder 15 GM Bottle TOP PRN (07:54)
[2016-06-29] MEDS: Potassium Chloride 20 MEQ Tab.ER PO SCH ×3 (07:54→17:16)
[2016-06-29] MEDS: Omeprazole 20 MG Cap.CR PO SCH (07:54)
[2016-06-29] MEDS: Magnesium Oxide 400 MG Tab PO SCH ×2 (07:54→17:16)
[2016-06-29 08:28] LABS: CHLORIDE,CL 97 mmol/L (98-107); SODIUM,NA 136 mmol/L (136-145)
[2016-06-29] MEDS: traMADol 50 MG Tab PO PRN ×2 (09:57→22:18)
[2016-06-29] MEDS: Acetaminophen 325 MG Tab PO PRN ×2 (09:58→22:18)
[2016-06-29] MEDS ORDERED: Cyanocobalamin (Vitamin B12) 1,000 MCG/ML SDV IM ONE (13:00)
[2016-06-29] MEDS: Rivaroxaban 10 MG Tab PO SCH (17:16)
[2016-06-29] MEDS: Allopurinol 100 MG Tab PO SCH (17:19)
[2016-06-29] MEDS: Digoxin 125 MCG Tab PO SCH (17:21)
[2016-06-29] MEDS: Metoprolol Succinate 25 MG Tab.ER PO SCH (17:22)
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
[2016-06-29] MEDS: Simvastatin 20 MG Tab PO SCH (22:18)
[2016-06-29] MEDS: Zolpidem 5 MG Tab PO SCH (22:18)
[2016-06-30] MEDS: Bumetanide 1 MG Tab PO SCH (07:25)
[2016-06-30] MEDS: Omeprazole 20 MG Cap.CR PO SCH (07:26)
[2016-06-30] MEDS: Magnesium Oxide 400 MG Tab PO SCH ×2 (07:26→17:41)
[2016-06-30] MEDS: Spironolactone 25 MG Tab PO SCH ×2 (07:26→17:42)
[2016-06-30] MEDS: Potassium Chloride 20 MEQ Tab.ER PO SCH ×2 (07:27→11:51)
[2016-06-30] MEDS: traMADol 50 MG Tab PO PRN ×2 (14:29→22:27)
--- NOTE | 2016-06-30 14:50 | PCM.SN ---
- Free Text/Narrative Note: 06/30/16 Lev Hernandez MD No nausea, vomiting. K+ 4.7. Continues to make progress in PT.
[2016-06-30] MEDS: Metoprolol Succinate 25 MG Tab.ER PO SCH (17:40)
[2016-06-30] MEDS: Rivaroxaban 10 MG Tab PO SCH (17:41)
[2016-06-30] MEDS: Digoxin 125 MCG Tab PO SCH (17:41)
[2016-06-30] MEDS: Allopurinol 100 MG Tab PO SCH (17:42)
[2016-06-30] MEDS: Zolpidem 5 MG Tab PO SCH (22:26)
[2016-06-30] MEDS: Acetaminophen 325 MG Tab PO PRN (22:26)
[2016-06-30] MEDS: Simvastatin 20 MG Tab PO SCH (22:27)
[2016-07-01] MEDS: Omeprazole 20 MG Cap.CR PO SCH (07:20)
[2016-07-01] MEDS: Bumetanide 1 MG Tab PO SCH (07:20)
[2016-07-01] MEDS: Spironolactone 25 MG Tab PO SCH ×2 (07:20→17:11)
[2016-07-01] MEDS: Magnesium Oxide 400 MG Tab PO SCH ×2 (07:20→17:10)
[2016-07-01] MEDS: traMADol 50 MG Tab PO PRN ×2 (08:54→21:59)
[2016-07-01] MEDS: Acetaminophen 325 MG Tab PO PRN (08:55)
[2016-07-01] MEDS: Metoprolol Succinate 25 MG Tab.ER PO SCH (17:10)
[2016-07-01] MEDS: Allopurinol 100 MG Tab PO SCH (17:11)
[2016-07-01] MEDS: Digoxin 125 MCG Tab PO SCH (17:11)
[2016-07-01] MEDS: Rivaroxaban 10 MG Tab PO SCH (17:11)
[2016-07-01] MEDS: Zolpidem 5 MG Tab PO SCH (21:53)
[2016-07-01] MEDS: Simvastatin 20 MG Tab PO SCH (21:53)
[2016-07-02] MEDS: Omeprazole 20 MG Cap.CR PO SCH (07:43)
[2016-07-02] MEDS: Magnesium Oxide 400 MG Tab PO SCH ×2 (07:43→17:39)
[2016-07-02] MEDS: Bumetanide 1 MG Tab PO SCH (07:43)
[2016-07-02] MEDS: Spironolactone 25 MG Tab PO SCH ×2 (07:43→17:40)
[2016-07-02] MEDS: traMADol 50 MG Tab PO PRN ×2 (13:26→23:31)
[2016-07-02] MEDS: Acetaminophen 325 MG Tab PO PRN ×2 (13:26→23:32)
[2016-07-02] MEDS: Rivaroxaban 10 MG Tab PO SCH (17:39)
[2016-07-02] MEDS: Metoprolol Succinate 25 MG Tab.ER PO SCH (17:39)
[2016-07-02] MEDS: Digoxin 125 MCG Tab PO SCH (17:39)
[2016-07-02] MEDS: Allopurinol 100 MG Tab PO SCH (17:39)
[2016-07-02] MEDS: Zolpidem 5 MG Tab PO SCH (23:31)
[2016-07-02] MEDS: Simvastatin 20 MG Tab PO SCH (23:32)
[2016-07-03] MEDS: Bumetanide 1 MG Tab PO SCH (07:42)
[2016-07-03] MEDS: Spironolactone 25 MG Tab PO SCH ×2 (07:42→17:32)
[2016-07-03] MEDS: Magnesium Oxide 400 MG Tab PO SCH ×2 (07:42→17:31)
[2016-07-03] MEDS: Omeprazole 20 MG Cap.CR PO SCH (07:43)
[2016-07-03] MEDS: Rivaroxaban 10 MG Tab PO SCH (17:31)
[2016-07-03] MEDS: Digoxin 125 MCG Tab PO SCH (17:31)
[2016-07-03] MEDS: Allopurinol 100 MG Tab PO SCH (17:32)
[2016-07-03] MEDS: Metoprolol Succinate 25 MG Tab.ER PO SCH (17:35)
[2016-07-03] MEDS: Acetaminophen 325 MG Tab PO PRN (22:22)
[2016-07-03] MEDS: Zolpidem 5 MG Tab PO SCH (22:22)
[2016-07-03] MEDS: traMADol 50 MG Tab PO PRN (22:22)
[2016-07-03] MEDS: Simvastatin 20 MG Tab PO SCH (22:22)
[2016-07-04] MEDS: Bumetanide 1 MG Tab PO SCH (07:55)
[2016-07-04] MEDS: Magnesium Oxide 400 MG Tab PO SCH ×2 (07:55→17:39)
[2016-07-04] MEDS: Omeprazole 20 MG Cap.CR PO SCH (07:56)
[2016-07-04] MEDS: Spironolactone 25 MG Tab PO SCH ×2 (07:56→17:38)
[2016-07-04] MEDS: Digoxin 125 MCG Tab PO SCH (17:37)
[2016-07-04] MEDS: Allopurinol 100 MG Tab PO SCH (17:37)
[2016-07-04] MEDS: Metoprolol Succinate 25 MG Tab.ER PO SCH (17:38)
[2016-07-04] MEDS: Rivaroxaban 10 MG Tab PO SCH (17:38)
[2016-07-04] MEDS: Simvastatin 20 MG Tab PO SCH (21:50)
[2016-07-04] MEDS: Acetaminophen 325 MG Tab PO PRN (21:50)
[2016-07-04] MEDS: Zolpidem 5 MG Tab PO SCH (21:50)
[2016-07-04] MEDS: traMADol 50 MG Tab PO PRN (21:51)
[2016-07-05] MEDS: Magnesium Oxide 400 MG Tab PO SCH ×2 (07:33→18:32)
[2016-07-05] MEDS: Spironolactone 25 MG Tab PO SCH ×2 (07:33→18:34)
[2016-07-05] MEDS: Bumetanide 1 MG Tab PO SCH (07:34)
[2016-07-05] MEDS: Omeprazole 20 MG Cap.CR PO SCH (07:34)
[2016-07-05] MEDS: traMADol 50 MG Tab PO PRN ×2 (09:13→22:46)
[2016-07-05] MEDS: Acetaminophen 325 MG Tab PO PRN ×2 (09:14→22:47)
[2016-07-05] MEDS: Allopurinol 100 MG Tab PO SCH (18:32)
[2016-07-05] MEDS: Metoprolol Succinate 25 MG Tab.ER PO SCH (18:33)
[2016-07-05] MEDS: Digoxin 125 MCG Tab PO SCH (18:33)
[2016-07-05] MEDS: Rivaroxaban 10 MG Tab PO SCH (18:33)
[2016-07-05] MEDS: Simvastatin 20 MG Tab PO SCH (22:26)
[2016-07-05] MEDS: Zolpidem 5 MG Tab PO SCH (22:26)
[2016-07-06] MEDS: Bumetanide 1 MG Tab PO SCH (07:54)
[2016-07-06] MEDS: Magnesium Oxide 400 MG Tab PO SCH ×2 (07:55→18:04)
[2016-07-06] MEDS: Spironolactone 25 MG Tab PO SCH ×2 (07:55→18:07)
[2016-07-06] MEDS: Omeprazole 20 MG Cap.CR PO SCH (07:55)
[2016-07-06] MEDS: Cyanocobalamin (Vitamin B12) 1,000 MCG/ML SDV IM SCH (07:56)
[2016-07-06] MEDS: traMADol 50 MG Tab PO PRN (12:21)
[2016-07-06] MEDS: Acetaminophen 325 MG Tab PO PRN (12:22)
[2016-07-06] MEDS: Rivaroxaban 10 MG Tab PO SCH (18:04)
[2016-07-06] MEDS: Metoprolol Succinate 25 MG Tab.ER PO SCH (18:05)
[2016-07-06] MEDS: Digoxin 125 MCG Tab PO SCH (18:06)
[2016-07-06] MEDS: Allopurinol 100 MG Tab PO SCH (18:07)
[2016-07-06] MEDS: Simvastatin 20 MG Tab PO SCH (22:06)
[2016-07-06] MEDS: Zolpidem 5 MG Tab PO SCH (22:06)
[2016-07-07] MEDS: Omeprazole 20 MG Cap.CR PO SCH (07:04)
[2016-07-07] MEDS: Spironolactone 25 MG Tab PO SCH ×2 (07:04→17:52)
[2016-07-07] MEDS: Bumetanide 1 MG Tab PO SCH (07:04)
[2016-07-07] MEDS: Magnesium Oxide 400 MG Tab PO SCH ×2 (07:04→17:52)
[2016-07-07] MEDS: Metoprolol Succinate 25 MG Tab.ER PO SCH (17:51)
[2016-07-07] MEDS: Allopurinol 100 MG Tab PO SCH (17:51)
[2016-07-07] MEDS: Rivaroxaban 10 MG Tab PO SCH (17:52)
[2016-07-07] MEDS: Digoxin 125 MCG Tab PO SCH (17:52)
[2016-07-07] MEDS: Acetaminophen 325 MG Tab PO PRN (21:30)
[2016-07-07] MEDS: Zolpidem 5 MG Tab PO SCH (21:30)
[2016-07-07] MEDS: Simvastatin 20 MG Tab PO SCH (21:30)
[2016-07-08] MEDS: Bumetanide 1 MG Tab PO SCH (07:39)
[2016-07-08] MEDS: Spironolactone 25 MG Tab PO SCH ×2 (07:39→18:23)
[2016-07-08] MEDS: Magnesium Oxide 400 MG Tab PO SCH ×2 (07:40→18:23)
[2016-07-08] MEDS: traMADol 50 MG Tab PO PRN ×2 (07:40→21:34)
[2016-07-08] MEDS: Omeprazole 20 MG Cap.CR PO SCH (07:40)
[2016-07-08] MEDS: Acetaminophen 325 MG Tab PO PRN ×2 (07:40→21:33)
[2016-07-08] MEDS: Metoprolol Succinate 25 MG Tab.ER PO SCH (18:22)
[2016-07-08] MEDS: Rivaroxaban 10 MG Tab PO SCH (18:23)
[2016-07-08] MEDS: Digoxin 125 MCG Tab PO SCH (18:23)
[2016-07-08] MEDS: Allopurinol 100 MG Tab PO SCH (18:24)
[2016-07-08] MEDS: Simvastatin 20 MG Tab PO SCH (21:33)
[2016-07-08] MEDS: Zolpidem 5 MG Tab PO SCH (21:35)
[2016-07-09] MEDS: Bumetanide 1 MG Tab PO SCH (07:38)
[2016-07-09] MEDS: Spironolactone 25 MG Tab PO SCH ×2 (07:38→17:31)
[2016-07-09] MEDS: Omeprazole 20 MG Cap.CR PO SCH (07:39)
[2016-07-09] MEDS: Magnesium Oxide 400 MG Tab PO SCH ×2 (07:39→17:29)
[2016-07-09] MEDS: Acetaminophen 325 MG Tab PO PRN (08:00)
[2016-07-09] MEDS: traMADol 50 MG Tab PO PRN ×2 (08:00→21:25)
[2016-07-09] MEDS: Digoxin 125 MCG Tab PO SCH (17:28)
[2016-07-09] MEDS: Metoprolol Succinate 25 MG Tab.ER PO SCH (17:29)
[2016-07-09] MEDS: Allopurinol 100 MG Tab PO SCH (17:29)
[2016-07-09] MEDS: Rivaroxaban 10 MG Tab PO SCH (17:30)
[2016-07-09] MEDS: Zolpidem 5 MG Tab PO SCH (21:25)
[2016-07-09] MEDS: Simvastatin 20 MG Tab PO SCH (21:25)
[2016-07-10] MEDS: Spironolactone 25 MG Tab PO SCH ×2 (07:32→17:29)
[2016-07-10] MEDS: Omeprazole 20 MG Cap.CR PO SCH (07:32)
[2016-07-10] MEDS: Magnesium Oxide 400 MG Tab PO SCH ×2 (07:32→17:29)
[2016-07-10] MEDS: Bumetanide 1 MG Tab PO SCH (07:32)
[2016-07-10 09:33] LABS: CHLORIDE,CL 102 mmol/L (98-107); SODIUM,NA 139 mmol/L (136-145)
--- NOTE | 2016-07-10 09:48 | PCM.PN ---
- General Info Date of Service: 07/10/16 Admission Dx/Problem (Free Text): Admission Diagnosis/Problem Admission Diagnosis/Problem Weakness Subjective Update: Patient states doing okay, discussed depression but patient states he is doing fine and not wanting any medications. Functional Status: Reports: pain controlled, tolerating diet - Review of Systems General: Reports: No Symptoms HEENT: Reports: no symptoms Pulmonary: Reports: no symptoms Cardiovascular: Reports: No Symptoms Gastrointestinal: Reports: No symptoms Genitourinary: Reports: no symptoms Musculoskeletal: Reports: leg pain (pain controlled on the medication) Skin: Reports: no symptoms Neurological: Reports: No Symptoms Psychiatric: Reports: depression - Patient Data Vitals - most recent: Last Vital Signs Temp 97.7 F 07/10/16 07:57 Pulse 100 07/10/16 07:57 Resp 17 07/10/16 07:57 BP 102/64 07/10/16 07:57 Pulse Ox 96 07/10/16 07:57 Weight - most recent: 309 lb 4.8 oz I&O - last 24 hours: Intake & Output 07/09/16 07/10/16 07/10/16 22:59 06:59 14:59 Intake Total 1360 600 Output Total 150 Balance 1210 600 Lab Results last 24 hrs: Laboratory Results - last 24 hr 07/10/16 07/10/16 Range/Units 09:15 09:15 WBC 5.9 (4.0-10.2) K/uL RBC 4.91 (4.33-5.41) M/uL Hgb 13.3 (13.1-16.8) g/dL Hct 42.6 (39.0-49.0) % MCV 86.8 (84.0-98.0) fL MCH 27.1 L (28.2-33.3) pg MCHC 31.2 L (31.7-36.0) g/dL RDW 17.7 H (11.2-14.1) % Plt Count 210 (150-350) K/uL Neut % (Auto) 62.9 (45.0-80.0) % Lymph % (Auto) 25.0 (10.0-50.0) % Stan[place] % (Auto) 8.5 (2.0-14.0) % Eos % (Auto) 2.9 (0.0-5.0) % Baso % (Auto) 0.7 (0.0-2.0) % Neut # (Auto) 3.70 (1.40-7.00) K/uL Lymph # (Auto) 1.47 (0.50-3.50) K/uL Stanly # (Auto) 0.50 (0.00-1.00) K/uL Eos # (Auto) 0.17 (0.00-0.50) K/uL Baso # (Auto) 0.04 (0.00-0.20) K/uL Sodium 139 (136-145) mmol/L Potassium 4.2 (3.5-5.1) mmol/L Chloride 102 (98-107) mmol/L Carbon Dioxide 30.1 (21.0-32.0) mmol/L BUN 17 (7-18) mg/dL Creatinine 1.11 (0.51-1.17) mg/dL Est Cr Clr Drug Dosing 68.94 mL/min Estimated GFR (MDRD) > 60 mL/min Glucose 155 H (74-106) mg/dL Calcium 9.1 (8.5-10.1) mg/dL Med Orders - Current: Current Medications Acetaminophen (Tylenol) 650 mg PO Q6H PRN PRN Reason: Pain Last Admin: 07/09/16 08:00 Dose: 650 mg Albuterol/Ipratropium (Duoneb 3.0-0.5 Mg/3 Ml) 3 ml NEB Q4HRRT PRN PRN Reason: Shortness of Breath Allopurinol (Zyloprim) 300 mg PO DAILY@1800 [facility] Last Admin: 07/09/16 17:29 Dose: 300 mg Bisacodyl (Dulcolax) 10 mg RECTAL DAILY PRN PRN Reason: Constipation Last Admin: 05/21/16 12:38 Dose: 10 mg Bumetanide (Bumex) 2 mg PO DAILY [facility] Last Admin: 07/10/16 07:32 Dose: 2 mg Cyanocobalamin (Vitamin B12) 1,000 mcg IM Q7D [facility] Stop: 07/20/16 08:01 Last Admin: 07/06/16 07:56 Dose: 1,000 mcg Cyanocobalamin (Vitamin B12) 1,000 mcg IM Q30D [facility] Digoxin (Lanoxin) 125 mcg PO DAILY@1800 [facility] Last Admin: 07/09/16 17:28 Dose: 125 mcg Hydrocortisone (Hydrocortisone 1% Crm) 1.5 gm TOP BID PRN PRN Reason: Itching Last Admin: 05/07/16 04:34 Dose: 1.5 gm Magnesium Oxide (Magnesium Oxide) 400 mg PO BID [facility] Last Admin: 07/10/16 07:32 Dose: 400 mg Methyl Salicylate (Icy Hot Cream) 0 gm TOP BID PRN PRN Reason: Pain Metoprolol Succinate (Toprol Xl) 25 mg PO DAILY@1800 [facility] Last Admin: 07/09/16 17:29 Dose: 25 mg Nitroglycerin (Nitrostat) 0.4 mg SL Q5M PRN PRN Reason: Chest Pain Nystatin (Nystop) 0 gm TOP QID PRN PRN Reason: Rash Last Admin: 06/29/16 07:54 Dose: 1 applic Omeprazole (Omeprazole) 20 mg PO DAILY [facility] Last Admin: 07/10/16 07:32 Dose: 20 mg Ondansetron HCl (Zofran Odt) 4 mg PO Q6H PRN PRN Reason: Nausea/Vomiting Last Admin: 06/24/16 19:06 Dose: 4 mg Polyethylene Glycol (Miralax) 17 gm PO DAILY PRN PRN Reason: Constipation Last Admin: 05/20/16 08:58 Dose: 17 gm Rivaroxaban (Xarelto) 20 mg PO DAILY@18 [facility] Last Admin: 07/09/16 17:30 Dose: 20 mg Senna/Docusate Sodium (Senna Plus) 1 tab PO DAILY PRN PRN Reason: Constipation Last Admin: 05/30/16 11:59 Dose: 1 tab Senna/Docusate Sodium (Senna Plus) 1 tab PO BID [facility] Last Admin: 07/10/16 07:32 Dose: 1 tab Simvastatin (Zocor) 20 mg PO DAILY@2199 [facility] Last Admin: 07/09/16 21:25 Dose: 20 mg Spironolactone (Aldactone) 25 mg PO BID [facility] Last Admin: 07/10/16 07:32 Dose: 25 mg Tramadol HCl (Ultram) 100 mg PO Q4H PRN PRN Reason: Pain (moderate 4-6) Last Admin: 07/09/16 21:25 Dose: 100 mg Zolpidem Tartrate (Ambien) 10 mg PO DAILY@2199 [facility] Last Admin: 07/09/16 21:25 Dose: 10 mg Discontinued Medications Acetaminophen (Tylenol) 0 mg PO Q6H [facility] Allopurinol (Zyloprim) 200 mg PO DAILY [facility] Last Admin: 05/20/16 07:54 Dose: 200 mg Allopurinol (Zyloprim) 100 mg PO DAILY [facility] Last Admin: 06/08/16 08:24 Dose: 100 mg Allopurinol (Zyloprim) 100 mg PO DAILY@1800 [facility] Last Admin: 06/27/16 17:34 Dose: 100 mg Aspirin (Halfprin) 81 mg PO DAILY [facility] Last Admin: 06/27/16 09:13 Dose: 81 mg Bumetanide (Bumex) 2 mg PO DAILY@08 [facility] Last Admin: 05/20/16 07:54 Dose: 2 mg Bumetanide (Bumex) 1 mg PO DAILY@14 PRN PRN Reason: If weight above 3lbs in 24 hr Bumetanide (Bumex) 1 mg PO DAILY [facility] Last Admin: 06/08/16 08:22 Dose: 1 mg Bumetanide (Bumex) 2 mg PO DAILY [facility] Last Admin: 06/27/16 09:12 Dose: 2 mg Cefuroxime Axetil (Ceftin) 500 mg PO BID [facility] Stop: 05/12/16 18:01 Last Admin: 05/12/16 17:12 Dose: 500 mg Cyanocobalamin (Vitamin B12) 1,000 mcg IM ONETIME ONE Stop: 06/29/16 13:01 Last Admin: 06/29/16 13:23 Dose: 1,000 mcg Digoxin (Lanoxin) 500 mcg PO ONETIME ONE Stop: 05/20/16 12:01 Last Admin: 05/20/16 11:44 Dose: 500 mcg Digoxin (Lanoxin) 250 mcg PO ONETIME ONE Stop: 05/20/16 20:01 Last Admin: 05/20/16 19:26 Dose: 250 mcg Doxycycline Hyclate (Vibramycin) 100 mg PO BID [facility] Stop: 05/12/16 18:01 Last Admin: 05/12/16 17:13 Dose: 100 mg Finasteride (Proscar) 5 mg PO DAILY [facility] Last Admin: 06/08/16 08:24 Dose: 5 mg Fluconazole (Diflucan) 100 mg PO DAILY [facility] Last Admin: 06/08/16 08:24 Dose: 100 mg Fluconazole (Diflucan) 100 mg PO DAILY@1800 [facility] Last Admin: 06/18/16 17:40 Dose: 100 mg Magnesium Hydroxide (Milk Of Magnesia) 30 ml PO DAILY [facility] Magnesium Hydroxide (Milk Of Magnesia) 30 ml PO DAILY@1400 [facility] Magnesium Oxide (Magnesium Oxide) 400 mg PO BID [facility] Last Admin: 06/08/16 17:18 Dose: 400 mg Magnesium Oxide (Magnesium Oxide) 800 mg PO ONETIME ONE Stop: 06/28/16 09:46 Last Admin: 06/28/16 10:33 Dose: 800 mg Methyl Salicylate (Icy Hot Cream) 1 gm TOP ASDIRECTED PRN PRN Reason: Pain Metolazone (Zaroxolyn) 2.5 mg PO MOWEFR@0800 [facility] Last Admin: 06/23/16 08:48 Dose: 2.5 mg Metolazone (Zaroxolyn) 5 mg PO ONETIME ONE Stop: 06/24/16 08:01 Last Admin: 06/24/16 07:46 Dose: 5 mg Metolazone (Zaroxolyn) 5 mg PO MOWEFR@0800 [facility] Last Admin: 06/25/16 08:35 Dose: 5 mg Metoprolol Succinate (Toprol Xl) 25 mg PO DAILY [facility] Last Admin: 05/17/16 08:36 Dose: 25 mg Metoprolol Succinate (Toprol Xl) 50 mg PO DAILY [facility] Last Admin: 05/20/16 07:59 Dose: Not Given Metoprolol Succinate (Toprol Xl) 25 mg PO ONETIME ONE Stop: 05/17/16 14:31 Last Admin: 05/17/16 15:39 Dose: 25 mg Metoprolol Succinate (Toprol Xl) 25 mg PO DAILY [facility] Last Admin: 06/08/16 08:22 Dose: 25 mg Multivitamins/Minerals/Vitamin C (Tab-A-Sally) 1 tab PO DAILY [facility] Last Admin: 06/08/16 08:23 Dose: 1 tab Nystatin (Nystop) 0 gm TOP BID [facility] Last Admin: 06/02/16 07:54 Dose: 1 applic Nystatin (Nystop) 0 gm TOP Q12HR [facility] Last Admin: 06/19/16 08:44 Dose: Not Given Polyethylene Glycol (Miralax) 17 gm PO DAILY [facility] Last Admin: 05/08/16 08:15 Dose: Not Given Potassium Chloride (Klor-Con M20) 40 meq PO ONETIME ONE Stop: 06/28/16 09:31 Last Admin: 06/28/16 10:33 Dose: 40 meq Potassium Chloride (Klor-Con M20) 40 meq PO TID [facility] Last Admin: 06/29/16 11:41 Dose: 40 meq Potassium Chloride (Klor-Con M20) 40 meq PO ONETIME ONE Stop: 06/28/16 15:01 Last Admin: 06/28/16 15:51 Dose: 40 meq Potassium Chloride (Klor-Con M20) 40 meq PO ONETIME ONE Stop: 06/28/16 20:01 Last Admin: 06/28/16 22:26 Dose: 40 meq Potassium Chloride (Klor-Con M20) Confirm Administered Dose 40 meq .ROUTE .STK- MED ONE Stop: 06/28/16 22:23 Last Admin: 06/28/16 22:28 Dose: Not Given Potassium Chloride (Klor-Con M20) 20 meq PO TID [facility] Last Admin: 06/30/16 11:51 Dose: 20 meq Rivaroxaban (Xarelto) 20 mg PO ONETIME ONE Stop: 05/04/16 19:31 Rivaroxaban (Xarelto) 20 mg PO ONETIME ONE Stop: 05/04/16 00:46 Last Admin: 05/04/16 01:23 Dose: 20 mg Senna (Senna) 8.6 - 50 mg PO BID [facility] Senna/Docusate Sodium (Senna Plus) 1 tab PO BID [facility] Last Admin: 05/04/16 07:47 Dose: 1 tab Senna/Docusate Sodium (Senna Plus) 1 tab PO DAILY [facility] Last Admin: 05/08/16 08:15 Dose: Not Given Simvastatin (Zocor) 20 mg PO BEDTIME [facility] Last Admin: 06/19/16 20:33 Dose: 20 mg Spironolactone (Aldactone) 25 mg PO ONETIME ONE Stop: 06/28/16 09:31 Last Admin: 06/28/16 10:33 Dose: 25 mg Tamsulosin HCl (Flomax) 0.4 mg PO DAILY [facility] Tamsulosin HCl (Flomax) 0.4 mg PO BEDTIME [facility] Last Admin: 05/19/16 19:48 Dose: 0.4 mg Temazepam (Restoril) 15 mg PO BEDTIME PRN PRN Reason: Insomnia Last Admin: 06/08/16 20:45 Dose: 15 mg Tramadol HCl (Ultram) 50 mg PO Q4H PRN PRN Reason: Pain (moderate 4-6) Last Admin: 05/12/16 12:11 Dose: 50 mg Tramadol HCl (Ultram) 50 mg PO ONETIME ONE Stop: 05/12/16 15:51 Last Admin: 05/12/16 16:39 Dose: 50 mg Zolpidem Tartrate (Ambien) 10 mg PO BEDTIME LUIS Last Admin: 06/19/16 20:33 Dose: 10 mg - Exam Quality Assessment: skin breakdown General: alert, oriented, cooperative, no acute distress HEENT: Pupils equal, Pupils reactive Neck: supple Lungs: Clear to auscultation, Normal respiratory effort Cardiovascular: Regular Rate, No Murmurs, Irregular Rhythm Abdomen: bowel sounds present, soft, no tenderness, no distension Extremities: edema (1+ edema bilat) Peripheral Pulses: 1+: Dorsalis Pedis (L), Dorsalis Pedis (R) Skin: warm, dry, intact Wound/Incisions: healing well Neurological: no new focal deficit Psy/Mental Status: alert, normal affect, normal mood, depressed - Problem List & Annotations (1) Fracture of lower leg SNOMED Code(s): 922721897 Code(s): S82.90XA - UNSP FRACTURE OF UNSP LOWER LEG, INIT FOR CLOS FX Status: Acute Priority: High Current Visit: Yes Qualifiers: Encounter type: subsequent encounter Laterality: unspecified laterality Fracture healing: with routine healing (2) Lumbar verterbral fracture, traumatic SNOMED Code(s): 506799732 Code(s): S32.009A - UNSP FRACTURE OF UNSP LUMBAR VERTEBRA, INIT FOR CLOS FX Status: Acute Priority: High Current Visit: Yes (3) Pernicious anemia SNOMED Code(s): 55200973 Code(s): D51.0 - VITAMIN B12 DEFIC ANEMIA DUE TO INTRINSIC FACTOR DEFICIENCY Status: Acute Priority: High Current Visit: Yes (4) Morbid obesity SNOMED Code(s): 419851342, 20344176514609 Code(s): E66.01 - MORBID (SEVERE) OBESITY DUE TO EXCESS CALORIES Status: Acute Current Visit: No (5) Diabetes mellitus SNOMED Code(s): 49451504 Code(s): E11.9 - TYPE 2 DIABETES MELLITUS WITHOUT COMPLICATIONS Status: Chronic Priority: Medium Current Visit: No Qualifiers: Diabetes mellitus type: type 2 Diabetes mellitus complication status: without complication Diabetes mellitus watermaster insulin use: without watermaster use Qualified Code(s): E11.9 - Type 2 diabetes mellitus without complications (6) Hyperlipidemia SNOMED Code(s): 58545641 Code(s): E78.5 - HYPERLIPIDEMIA, UNSPECIFIED Status: Chronic Priority: Medium Current Visit: No Qualifiers: Hyperlipidemia type: unspecified Qualified Code(s): E78.5 - Hyperlipidemia , unspecified Annotation/Comment:: Morbid obesity. Lipid panel prior to discharge and/or by accepting physicians; note current statin therapy - Problem List Review Problem List Initiated/Reviewed/Updated: Yes - Plan Plan:: 05/03/16 Lev Hernandez MD Admit to swing bed status for PT-OT and dressing changes. 05/04/16 Lev Hernandez MD Doing okay. Working in PT-OT. He really wants to walk but surgeon has not authorized him. He is still non-weight bearing bilateral lower extremities. 05/09/2016 Patient states doing alright and pain controlled. Follow up appointments are set up at [facility] with ortho and neurosurgery in the next few weeks. Discussed moods, patient get upset that this happened to him but states not needing an antidepressant. Patient states legs are less swollen after ROM is done with them , otherwise look about the same. Patient is on Bumex, will wait to change dose and monitor the swelling. Will continue with PT/OT and current pain management. Wounds on the left lower leg evaluated and showing improvement, will continue with current dressings. Halima Parekh,[employer] 05/11/16 Lev Hernandez MD Really wanting to walk and weight bear on at least one leg. I read him instructions sent from [facility] doctors. He has follow-up appointment with orthopedics and neurosurgery next week 05/18/16 at [facility]. Recommend no weight bearing until he is evaluated by [facility] providers. He is reluctant but does agree. Also agrees to lab work tomorrow. Continue PT-OT. 05/17/16 Lev Hernandez MD He has appointment tomorrow at [facility] with orthopedic surgery. He cancelled the neurosurgery appointment. Await ortho recommendations. 05/20/16 Lev Hernandez MD PT has him up in the chair today. He had a "spell" the other morning with diaphoresis, hypotension, hypoxia and emesis. Medications adjusted. Ortho appointment says no weight bearing to continue until next ortho appointment. Will x-ray spine for follow-up on L1 fracture and s/p fusion. Check labs in am. 05/24/16 Lev Hernandez MD Doing okay. No spells. Spine x-ray results discussed with him. No pain in back. Appointment tomorrow with Dr. Juarez to have eyes checked at 1500. He requested appointment. Continue working with PT-OT. 06/01/16 Lev Hernandez MD Doing okay. No "spells" with medication changes. Still non-weight bearing. Check labs and EKG in am. 06/08/16 Lev Hernandez MD Spirits down but he says "You would be too". Check lump left back. Consistent with lipoma. Leg edema persists. Will increase bumex. Follow up with orthopedics on 06/22/2016. 06/15/16 Doing okay. Hoping he will be able to bear weight soon. Waiting for orthopedic appointment. Kyle himself around in his wheel chair. Leg edema persists. 06/23/16 Lev Hernandez MD Was to ortho yesterday. Okay to start weight bearing. Pain and weakness and still has right foot drop, will get AFO. Making slow progress. 06/28/16 Lev Hernandez MD Developed nausea, vomiting, weakness. Labs confirm hypokalemia. Replacement ordered. BLE edema improved. Will readjust diuretics. 06/29/16 Lev Hernandez MD Feeling a little better. Some nausea. Legs still weak. K+ improved. B12 level low. PA. Start B12 injections. Working hard in PT. 07/10/2016 Patient is doing okay, discussed depression but patient states he is doing fine and not wanting any medication. Patient is waiting for his brace and then will be able to ambulate better. Currently, pivoting with assistance and walker and della lift into the bathroom. Patient hopes to get strong enough to make it back home. Patient states having some nausea but states, "It is due to the hospital food and has had this since I have been here." Labs rechecked today due to slight elevation of the Cr on 07/09/2016 labs, Cr today improved and now within normal range. will continue to monitor. Continues with leg edema, but some better. Support given. Halima Parekh,[employer]
[2016-07-10] MEDS: Rivaroxaban 10 MG Tab PO SCH (17:29)
[2016-07-10] MEDS: Allopurinol 100 MG Tab PO SCH (17:29)
[2016-07-10] MEDS: Digoxin 125 MCG Tab PO SCH (17:29)
[2016-07-10] MEDS: Metoprolol Succinate 25 MG Tab.ER PO SCH (17:30)
[2016-07-10] MEDS: Zolpidem 5 MG Tab PO SCH (21:24)
[2016-07-10] MEDS: traMADol 50 MG Tab PO PRN (21:24)
[2016-07-10] MEDS: Simvastatin 20 MG Tab PO SCH (21:24)
[2016-07-11] MEDS: Bumetanide 1 MG Tab PO SCH (08:16)
[2016-07-11] MEDS: Magnesium Oxide 400 MG Tab PO SCH ×2 (08:16→18:18)
[2016-07-11] MEDS: Omeprazole 20 MG Cap.CR PO SCH (08:17)
[2016-07-11] MEDS: Spironolactone 25 MG Tab PO SCH ×2 (08:17→18:17)
[2016-07-11] MEDS: Rivaroxaban 10 MG Tab PO SCH (18:17)
[2016-07-11] MEDS: Metoprolol Succinate 25 MG Tab.ER PO SCH (18:17)
[2016-07-11] MEDS: Digoxin 125 MCG Tab PO SCH (18:18)
[2016-07-11] MEDS: Allopurinol 100 MG Tab PO SCH (18:18)
[2016-07-11] MEDS: Simvastatin 20 MG Tab PO SCH (21:50)
[2016-07-11] MEDS: Zolpidem 5 MG Tab PO SCH (21:50)
[2016-07-11] MEDS: traMADol 50 MG Tab PO PRN (21:50)
[2016-07-12] MEDS: Omeprazole 20 MG Cap.CR PO SCH (07:19)
[2016-07-12] MEDS: Magnesium Oxide 400 MG Tab PO SCH ×2 (07:19→17:37)
[2016-07-12] MEDS: Spironolactone 25 MG Tab PO SCH ×2 (07:19→17:37)
[2016-07-12] MEDS: Bumetanide 1 MG Tab PO SCH (07:19)
[2016-07-12] MEDS: traMADol 50 MG Tab PO PRN ×2 (09:43→22:14)
[2016-07-12] MEDS: Acetaminophen 325 MG Tab PO PRN ×2 (09:44→22:14)
[2016-07-12] MEDS: Digoxin 125 MCG Tab PO SCH (17:35)
[2016-07-12] MEDS: Allopurinol 100 MG Tab PO SCH (17:36)
[2016-07-12] MEDS: Metoprolol Succinate 25 MG Tab.ER PO SCH (17:36)
[2016-07-12] MEDS: Rivaroxaban 10 MG Tab PO SCH (17:37)
[2016-07-12] MEDS: Simvastatin 20 MG Tab PO SCH (22:13)
[2016-07-12] MEDS: Zolpidem 5 MG Tab PO SCH (22:15)
[2016-07-13] MEDS: Spironolactone 25 MG Tab PO SCH ×2 (08:28→17:36)
[2016-07-13] MEDS: Omeprazole 20 MG Cap.CR PO SCH (08:28)
[2016-07-13] MEDS: Magnesium Oxide 400 MG Tab PO SCH ×2 (08:28→17:35)
[2016-07-13] MEDS: Bumetanide 1 MG Tab PO SCH (08:28)
[2016-07-13] MEDS: Acetaminophen 325 MG Tab PO PRN ×2 (09:38→22:03)
[2016-07-13] MEDS: traMADol 50 MG Tab PO PRN ×2 (09:39→22:04)
[2016-07-13] MEDS: Cyanocobalamin (Vitamin B12) 1,000 MCG/ML SDV IM SCH (09:43)
[2016-07-13] MEDS: Rivaroxaban 10 MG Tab PO SCH (17:35)
[2016-07-13] MEDS: Digoxin 125 MCG Tab PO SCH (17:35)
[2016-07-13] MEDS: Metoprolol Succinate 25 MG Tab.ER PO SCH (17:35)
[2016-07-13] MEDS: Allopurinol 100 MG Tab PO SCH (17:35)
[2016-07-13] MEDS: Simvastatin 20 MG Tab PO SCH (22:03)
[2016-07-13] MEDS: Zolpidem 5 MG Tab PO SCH (22:03)
[2016-07-14] MEDS: Spironolactone 25 MG Tab PO SCH ×2 (07:54→17:26)
[2016-07-14] MEDS: Omeprazole 20 MG Cap.CR PO SCH (07:54)
[2016-07-14] MEDS: Bumetanide 1 MG Tab PO SCH (07:54)
[2016-07-14] MEDS: Magnesium Oxide 400 MG Tab PO SCH ×2 (07:54→17:28)
[2016-07-14] MEDS: Acetaminophen 325 MG Tab PO PRN ×2 (07:58→21:56)
[2016-07-14] MEDS: traMADol 50 MG Tab PO PRN ×2 (07:58→21:57)
[2016-07-14] MEDS: Digoxin 125 MCG Tab PO SCH (17:28)
[2016-07-14] MEDS: Allopurinol 100 MG Tab PO SCH (17:29)
[2016-07-14] MEDS: Rivaroxaban 10 MG Tab PO SCH (17:29)
[2016-07-14] MEDS: Metoprolol Succinate 25 MG Tab.ER PO SCH (17:29)
[2016-07-14] MEDS: Zolpidem 5 MG Tab PO SCH (21:57)
[2016-07-14] MEDS: Simvastatin 20 MG Tab PO SCH (21:57)
[2016-07-15] MEDS: Spironolactone 25 MG Tab PO SCH ×2 (07:49→17:12)
[2016-07-15] MEDS: traMADol 50 MG Tab PO PRN (07:50)
[2016-07-15] MEDS: Bumetanide 1 MG Tab PO SCH (07:50)
[2016-07-15] MEDS: Omeprazole 20 MG Cap.CR PO SCH (07:50)
[2016-07-15] MEDS: Magnesium Oxide 400 MG Tab PO SCH (07:50)
[2016-07-15] MEDS: Acetaminophen 325 MG Tab PO PRN ×2 (07:50→22:11)
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
[2016-07-15] MEDS: Digoxin 125 MCG Tab PO SCH (17:12)
[2016-07-15] MEDS: Metoprolol Succinate 25 MG Tab.ER PO SCH (17:12)
[2016-07-15] MEDS: Rivaroxaban 10 MG Tab PO SCH (17:13)
[2016-07-15] MEDS: Simvastatin 20 MG Tab PO SCH (22:12)
[2016-07-15] MEDS: Zolpidem 5 MG Tab PO SCH (22:12)
[2016-07-15] MEDS: Nystatin Topical Powder 15 GM Bottle TOP PRN (22:33)
[2016-07-16] MEDS: Bumetanide 1 MG Tab PO SCH ×2 (07:57→11:58)
[2016-07-16] MEDS: Spironolactone 25 MG Tab PO SCH ×2 (07:58→17:22)
[2016-07-16] MEDS: Acetaminophen/Codeine 300-30 MG Tab PO PRN (12:59)
[2016-07-16] MEDS: Digoxin 125 MCG Tab PO SCH (17:22)
[2016-07-16] MEDS: Metoprolol Succinate 25 MG Tab.ER PO SCH (17:22)
[2016-07-16] MEDS: Rivaroxaban 10 MG Tab PO SCH (18:30)
[2016-07-16] MEDS: Simvastatin 20 MG Tab PO SCH (22:15)
[2016-07-16] MEDS: Zolpidem 5 MG Tab PO SCH (22:15)
[2016-07-17] MEDS: Bumetanide 1 MG Tab PO SCH ×2 (07:38→12:26)
[2016-07-17] MEDS: Spironolactone 25 MG Tab PO SCH ×2 (07:39→17:53)
[2016-07-17] MEDS: Rivaroxaban 10 MG Tab PO SCH (17:52)
[2016-07-17] MEDS: Digoxin 125 MCG Tab PO SCH (17:53)
[2016-07-17] MEDS: Metoprolol Succinate 25 MG Tab.ER PO SCH (17:54)
[2016-07-17] MEDS: Zolpidem 5 MG Tab PO SCH (21:53)
[2016-07-17] MEDS: Acetaminophen/Codeine 300-30 MG Tab PO PRN (21:53)
[2016-07-17] MEDS: Simvastatin 20 MG Tab PO SCH (21:53)
[2016-07-18] MEDS: Spironolactone 25 MG Tab PO SCH ×2 (08:37→17:28)
[2016-07-18] MEDS: Bumetanide 1 MG Tab PO SCH ×2 (08:37→12:01)
[2016-07-18] MEDS: Digoxin 125 MCG Tab PO SCH (17:28)
[2016-07-18] MEDS: Metoprolol Succinate 25 MG Tab.ER PO SCH (17:29)
[2016-07-18] MEDS: Rivaroxaban 10 MG Tab PO SCH (17:29)
[2016-07-18] MEDS: Zolpidem 5 MG Tab PO SCH (22:09)
[2016-07-18] MEDS: Simvastatin 20 MG Tab PO SCH (22:09)
[2016-07-18] MEDS: Acetaminophen/Codeine 300-30 MG Tab PO PRN (22:09)
[2016-07-19] MEDS: Spironolactone 25 MG Tab PO SCH ×2 (07:38→17:28)
[2016-07-19] MEDS: Bumetanide 1 MG Tab PO SCH ×2 (07:38→12:22)
[2016-07-19] MEDS: Digoxin 125 MCG Tab PO SCH (17:28)
[2016-07-19] MEDS: Metoprolol Succinate 25 MG Tab.ER PO SCH (17:28)
[2016-07-19] MEDS: Rivaroxaban 10 MG Tab PO SCH (17:28)
[2016-07-19] MEDS: Zolpidem 5 MG Tab PO SCH (22:10)
[2016-07-19] MEDS: Simvastatin 20 MG Tab PO SCH (22:10)
[2016-07-19] MEDS: Acetaminophen 325 MG Tab PO PRN (22:14)
[2016-07-20] MEDS: Spironolactone 25 MG Tab PO SCH ×2 (07:19→17:17)
[2016-07-20] MEDS: Bumetanide 1 MG Tab PO SCH ×2 (07:19→11:33)
[2016-07-20] MEDS: Acetaminophen 325 MG Tab PO PRN ×3 (07:32→22:27)
[2016-07-20] MEDS: Cyanocobalamin (Vitamin B12) 1,000 MCG/ML SDV IM SCH (07:34)
[2016-07-20] MEDS: Acetaminophen/Codeine 300-30 MG Tab PO PRN (14:17)
[2016-07-20] MEDS: Digoxin 125 MCG Tab PO SCH (17:17)
[2016-07-20] MEDS: Metoprolol Succinate 25 MG Tab.ER PO SCH (17:17)
[2016-07-20] MEDS: Rivaroxaban 10 MG Tab PO SCH (17:17)
[2016-07-20] MEDS: Zolpidem 5 MG Tab PO SCH (22:22)
[2016-07-20] MEDS: Simvastatin 20 MG Tab PO SCH (22:23)
[2016-07-21] MEDS: Bumetanide 1 MG Tab PO SCH ×2 (07:50→11:51)
[2016-07-21] MEDS: Spironolactone 25 MG Tab PO SCH ×2 (07:51→17:47)
[2016-07-21] MEDS: Ondansetron 4 MG Tab.DIS PO PRN (11:51)
[2016-07-21] MEDS: Acetaminophen/Codeine 300-30 MG Tab PO PRN ×2 (13:54→21:51)
[2016-07-21] MEDS: Acetaminophen 325 MG Tab PO PRN (13:55)
[2016-07-21] MEDS: Digoxin 125 MCG Tab PO SCH (17:47)
[2016-07-21] MEDS: Rivaroxaban 10 MG Tab PO SCH (17:47)
[2016-07-21] MEDS: Metoprolol Succinate 25 MG Tab.ER PO SCH (17:47)
[2016-07-21] MEDS: Simvastatin 20 MG Tab PO SCH (21:50)
[2016-07-21] MEDS: Zolpidem 5 MG Tab PO SCH (21:51)
[2016-07-22] MEDS: Spironolactone 25 MG Tab PO SCH ×2 (08:15→17:26)
[2016-07-22] MEDS: Bumetanide 1 MG Tab PO SCH ×2 (08:15→12:14)
[2016-07-22] MEDS: Acetaminophen/Codeine 300-30 MG Tab PO PRN ×2 (10:18→22:25)
[2016-07-22] MEDS: Acetaminophen 325 MG Tab PO PRN (10:18)
[2016-07-22] MEDS: Rivaroxaban 10 MG Tab PO SCH (17:26)
[2016-07-22] MEDS: Metoprolol Succinate 25 MG Tab.ER PO SCH (17:26)
[2016-07-22] MEDS: Digoxin 125 MCG Tab PO SCH (17:26)
[2016-07-22] MEDS: Aluminum Hydroxide/Magnesium Hydroxide/Simethicone Susp 30 ML Cup PO PRN ×2 (19:03→23:00)
[2016-07-22] MEDS: Zolpidem 5 MG Tab PO SCH (22:25)
[2016-07-22] MEDS: Simvastatin 20 MG Tab PO SCH (22:26)
[2016-07-23] MEDS: Acetaminophen 325 MG Tab PO PRN ×2 (08:02→22:09)
[2016-07-23] MEDS: Bumetanide 1 MG Tab PO SCH ×2 (08:02→12:29)
[2016-07-23] MEDS: Spironolactone 25 MG Tab PO SCH ×2 (08:02→17:00)
[2016-07-23] MEDS: Acetaminophen/Codeine 300-30 MG Tab PO PRN ×2 (09:35→22:11)
[2016-07-23] MEDS: Rivaroxaban 10 MG Tab PO SCH (16:59)
[2016-07-23] MEDS: Aluminum Hydroxide/Magnesium Hydroxide/Simethicone Susp 30 ML Cup PO PRN (17:00)
[2016-07-23] MEDS: Metoprolol Succinate 25 MG Tab.ER PO SCH (17:02)
[2016-07-23] MEDS: Digoxin 125 MCG Tab PO SCH (17:02)
[2016-07-23] MEDS: Zolpidem 5 MG Tab PO SCH (21:59)
[2016-07-23] MEDS: Simvastatin 20 MG Tab PO SCH (21:59)
[2016-07-24] MEDS: Bumetanide 1 MG Tab PO SCH ×2 (08:07→11:36)
[2016-07-24] MEDS: Spironolactone 25 MG Tab PO SCH ×2 (08:07→17:11)
[2016-07-24] MEDS: Acetaminophen 325 MG Tab PO PRN (11:40)
[2016-07-24] MEDS: Metoprolol Succinate 25 MG Tab.ER PO SCH (17:11)
[2016-07-24] MEDS: Digoxin 125 MCG Tab PO SCH (17:12)
[2016-07-24] MEDS: Rivaroxaban 10 MG Tab PO SCH (17:12)
[2016-07-24] MEDS: Acetaminophen/Codeine 300-30 MG Tab PO PRN (21:41)
[2016-07-24] MEDS: Simvastatin 20 MG Tab PO SCH (21:42)
[2016-07-24] MEDS: Zolpidem 5 MG Tab PO SCH (21:42)
[2016-07-25] MEDS: Spironolactone 25 MG Tab PO SCH ×2 (08:01→17:35)
[2016-07-25] MEDS: Bumetanide 1 MG Tab PO SCH ×2 (08:01→11:39)
[2016-07-25] MEDS: Rivaroxaban 10 MG Tab PO SCH (17:36)
[2016-07-25] MEDS: Metoprolol Succinate 25 MG Tab.ER PO SCH (17:36)
[2016-07-25] MEDS: Digoxin 125 MCG Tab PO SCH (17:41)
[2016-07-25] MEDS: Acetaminophen/Codeine 300-30 MG Tab PO PRN (21:52)
[2016-07-25] MEDS: Zolpidem 5 MG Tab PO SCH (21:52)
[2016-07-25] MEDS: Simvastatin 20 MG Tab PO SCH (21:52)
[2016-07-26] MEDS: Bumetanide 1 MG Tab PO SCH ×2 (07:50→11:57)
[2016-07-26] MEDS: Spironolactone 25 MG Tab PO SCH ×2 (07:50→17:24)
[2016-07-26] MEDS: Acetaminophen/Codeine 300-30 MG Tab PO PRN ×2 (12:48→20:11)
[2016-07-26] MEDS: Rivaroxaban 10 MG Tab PO SCH (17:23)
[2016-07-26] MEDS: Digoxin 125 MCG Tab PO SCH (17:24)
[2016-07-26] MEDS: Metoprolol Succinate 25 MG Tab.ER PO SCH (17:24)
[2016-07-26] MEDS: Zolpidem 5 MG Tab PO SCH (22:06)
[2016-07-26] MEDS: Simvastatin 20 MG Tab PO SCH (22:07)
[2016-07-27] MEDS: Bumetanide 1 MG Tab PO SCH ×2 (07:03→12:12)
[2016-07-27] MEDS: Spironolactone 25 MG Tab PO SCH ×2 (07:03→17:40)
[2016-07-27] MEDS: Acetaminophen/Codeine 300-30 MG Tab PO PRN ×2 (07:53→17:41)
[2016-07-27] MEDS: Rivaroxaban 10 MG Tab PO SCH (17:39)
[2016-07-27] MEDS: Metoprolol Succinate 25 MG Tab.ER PO SCH (17:40)
[2016-07-27] MEDS: Digoxin 125 MCG Tab PO SCH (17:40)
[2016-07-27] MEDS: Zolpidem 5 MG Tab PO SCH (21:28)
[2016-07-27] MEDS: Simvastatin 20 MG Tab PO SCH (21:28)
[2016-07-27] MEDS: Acetaminophen 325 MG Tab PO PRN (21:28)
[2016-07-28] MEDS: Spironolactone 25 MG Tab PO SCH ×2 (07:48→17:58)
[2016-07-28] MEDS: Bumetanide 1 MG Tab PO SCH ×2 (07:49→11:57)
--- NOTE | 2016-07-28 10:05 | PCM.SN ---
- Free Text/Narrative Note: 07-28-16 Jai Shipley PA-C Wound culture from left leg back with moderate amount Staph. aureus. Starting Doxycycline 100 BID x 10d. Holding antacid that is on order prn due to severe interaction. Will order Dig level in five days due to intermediate interaction between Doxycycline and Dig. Also ordered Bactroban ointment topically to wound.
[2016-07-28] MEDS ORDERED: Aluminum Hydroxide/Magnesium Hydroxide/Simethicone Susp 30 ML Cup PO PRN (11:00)
[2016-07-28] MEDS: Mupirocin Oint 22 GM Tube TOP SCH ×2 (11:58→17:58)
[2016-07-28] MEDS: Acetaminophen 325 MG Tab PO PRN (12:41)
[2016-07-28] MEDS: Acetaminophen/Codeine 300-30 MG Tab PO PRN ×2 (12:41→21:11)
[2016-07-28] MEDS: Digoxin 125 MCG Tab PO SCH (17:56)
[2016-07-28] MEDS: Rivaroxaban 10 MG Tab PO SCH (17:56)
[2016-07-28] MEDS: Metoprolol Succinate 25 MG Tab.ER PO SCH (17:57)
[2016-07-28] MEDS: Doxycycline 100 MG Cap PO SCH (19:58)
--- NOTE | 2016-07-28 20:24 | PCM.PN ---
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 of the manual wheelchair will significantly improve his ability to participate in MRADLs. He is willing to use the manual wheelchair. He has sufficient upper extremity function and other physical and the mental capabilities needed to safely propel the manual wheelchair. He weighs 305 pounds.
[2016-07-28] MEDS: Zolpidem 5 MG Tab PO SCH (21:10)
[2016-07-28] MEDS: Simvastatin 20 MG Tab PO SCH (21:11)
[2016-07-29] MEDS: Mupirocin Oint 22 GM Tube TOP SCH ×3 (08:16→18:16)
[2016-07-29] MEDS: Doxycycline 100 MG Cap PO SCH ×2 (08:16→20:12)
[2016-07-29] MEDS: Spironolactone 25 MG Tab PO SCH ×2 (08:16→18:09)
[2016-07-29] MEDS: Bumetanide 1 MG Tab PO SCH ×2 (08:16→13:25)
[2016-07-29] MEDS: Acetaminophen/Codeine 300-30 MG Tab PO PRN ×2 (09:34→22:12)
[2016-07-29] MEDS: Metoprolol Succinate 25 MG Tab.ER PO SCH (18:08)
[2016-07-29] MEDS: Rivaroxaban 10 MG Tab PO SCH (18:09)
[2016-07-29] MEDS: Digoxin 125 MCG Tab PO SCH (18:09)
[2016-07-29] MEDS: Zolpidem 5 MG Tab PO SCH (22:12)
[2016-07-29] MEDS: Simvastatin 20 MG Tab PO SCH (22:12)
[2016-07-30] MEDS: Bumetanide 1 MG Tab PO SCH ×2 (07:33→11:17)
[2016-07-30] MEDS: Doxycycline 100 MG Cap PO SCH ×2 (07:33→20:16)
[2016-07-30] MEDS: Spironolactone 25 MG Tab PO SCH ×2 (07:33→18:39)
[2016-07-30] MEDS: Mupirocin Oint 22 GM Tube TOP SCH ×3 (08:11→18:41)
[2016-07-30] MEDS: Ondansetron 4 MG Tab.DIS PO PRN (10:14)
[2016-07-30] MEDS: Acetaminophen/Codeine 300-30 MG Tab PO PRN ×2 (10:46→21:26)
[2016-07-30] MEDS: Digoxin 125 MCG Tab PO SCH (18:42)
[2016-07-30] MEDS: Metoprolol Succinate 25 MG Tab.ER PO SCH (18:44)
[2016-07-30] MEDS: Rivaroxaban 10 MG Tab PO SCH (18:45)
[2016-07-30] MEDS: Zolpidem 5 MG Tab PO SCH (21:25)
[2016-07-30] MEDS: Simvastatin 20 MG Tab PO SCH (21:27)
[2016-07-31] MEDS: Mupirocin Oint 22 GM Tube TOP SCH ×3 (08:11→18:08)
[2016-07-31] MEDS: Spironolactone 25 MG Tab PO SCH ×2 (08:11→18:08)
[2016-07-31] MEDS: Bumetanide 1 MG Tab PO SCH ×2 (08:12→11:57)
[2016-07-31] MEDS: Doxycycline 100 MG Cap PO SCH ×2 (08:13→19:56)
[2016-07-31] MEDS: Rivaroxaban 10 MG Tab PO SCH (18:05)
[2016-07-31] MEDS: Digoxin 125 MCG Tab PO SCH (18:06)
[2016-07-31] MEDS: Metoprolol Succinate 25 MG Tab.ER PO SCH (18:06)
[2016-07-31] MEDS: Simvastatin 20 MG Tab PO SCH (21:39)
[2016-07-31] MEDS: Zolpidem 5 MG Tab PO SCH (21:40)
[2016-08-01] MEDS: Mupirocin Oint 22 GM Tube TOP SCH ×3 (07:24→18:25)
[2016-08-01] MEDS: Bumetanide 1 MG Tab PO SCH ×2 (07:26→12:07)
[2016-08-01] MEDS: Spironolactone 25 MG Tab PO SCH ×2 (07:26→18:25)
[2016-08-01] MEDS: Doxycycline 100 MG Cap PO SCH ×2 (07:27→21:09)
[2016-08-01] MEDS: Rivaroxaban 10 MG Tab PO SCH (18:25)
[2016-08-01] MEDS: Digoxin 125 MCG Tab PO SCH (18:27)
[2016-08-01] MEDS: Metoprolol Succinate 25 MG Tab.ER PO SCH (18:29)
[2016-08-01] MEDS: Zolpidem 5 MG Tab PO SCH (21:07)
[2016-08-01] MEDS: Acetaminophen/Codeine 300-30 MG Tab PO PRN (21:08)
[2016-08-01] MEDS: Simvastatin 20 MG Tab PO SCH (21:10)
[2016-08-02] MEDS: Mupirocin Oint 22 GM Tube TOP SCH ×3 (07:48→18:29)
[2016-08-02] MEDS: Spironolactone 25 MG Tab PO SCH ×2 (07:48→18:29)
[2016-08-02] MEDS: Bumetanide 1 MG Tab PO SCH ×2 (07:49→11:14)
[2016-08-02] MEDS: Doxycycline 100 MG Cap PO SCH ×2 (07:50→19:35)
[2016-08-02] MEDS: Acetaminophen/Codeine 300-30 MG Tab PO PRN (14:09)
[2016-08-02 16:12] LABS: CHLORIDE,CL 103 mmol/L (98-107); SODIUM,NA 138 mmol/L (136-145)
[2016-08-02] MEDS ORDERED: Colchicine 0.6 MG Tab PO PRN (16:46)
[2016-08-02] MEDS: Rivaroxaban 10 MG Tab PO SCH (18:29)
[2016-08-02] MEDS: Digoxin 125 MCG Tab PO SCH (18:29)
[2016-08-02] MEDS: Metoprolol Succinate 25 MG Tab.ER PO SCH (18:30)
[2016-08-02] MEDS: Simvastatin 20 MG Tab PO SCH (21:59)
[2016-08-02] MEDS: Zolpidem 5 MG Tab PO SCH (22:01)
[2016-08-03] MEDS: Spironolactone 25 MG Tab PO SCH ×2 (07:13→17:07)
[2016-08-03] MEDS: Bumetanide 1 MG Tab PO SCH ×2 (07:14→11:27)
[2016-08-03] MEDS: Doxycycline 100 MG Cap PO SCH ×2 (07:14→20:50)
[2016-08-03] MEDS: Mupirocin Oint 22 GM Tube TOP SCH ×3 (07:15→17:09)
[2016-08-03] MEDS: Acetaminophen/Codeine 300-30 MG Tab PO PRN ×2 (12:25→20:58)
[2016-08-03] MEDS: Acetaminophen 325 MG Tab PO PRN (12:25)
[2016-08-03] MEDS: Metoprolol Succinate 25 MG Tab.ER PO SCH (17:07)
[2016-08-03] MEDS: Digoxin 125 MCG Tab PO SCH (17:08)
[2016-08-03] MEDS: Rivaroxaban 10 MG Tab PO SCH (17:08)
[2016-08-03] MEDS: Simvastatin 20 MG Tab PO SCH (21:00)
[2016-08-03] MEDS: Zolpidem 5 MG Tab PO SCH (21:00)
[2016-08-04] MEDS: Spironolactone 25 MG Tab PO SCH ×2 (08:35→17:38)
[2016-08-04] MEDS: Bumetanide 1 MG Tab PO SCH ×2 (08:36→11:48)
[2016-08-04] MEDS: Doxycycline 100 MG Cap PO SCH ×2 (08:36→20:47)
[2016-08-04] MEDS: Mupirocin Oint 22 GM Tube TOP SCH ×3 (08:36→17:39)
[2016-08-04] MEDS: Digoxin 125 MCG Tab PO SCH (17:39)
[2016-08-04] MEDS: Metoprolol Succinate 25 MG Tab.ER PO SCH (17:41)
[2016-08-04] MEDS: Rivaroxaban 10 MG Tab PO SCH (17:42)
[2016-08-04] MEDS: Acetaminophen/Codeine 300-30 MG Tab PO PRN (20:49)
[2016-08-04] MEDS: Zolpidem 5 MG Tab PO SCH (22:14)
[2016-08-04] MEDS: Simvastatin 20 MG Tab PO SCH (22:16)
[2016-08-05] MEDS: Spironolactone 25 MG Tab PO SCH ×2 (07:32→17:01)
[2016-08-05] MEDS: Bumetanide 1 MG Tab PO SCH ×2 (07:32→11:51)
[2016-08-05] MEDS: Mupirocin Oint 22 GM Tube TOP SCH ×3 (07:32→17:03)
[2016-08-05] MEDS: Doxycycline 100 MG Cap PO SCH ×2 (07:33→20:40)
[2016-08-05] MEDS: Acetaminophen/Codeine 300-30 MG Tab PO PRN (09:38)
[2016-08-05] MEDS: Digoxin 125 MCG Tab PO SCH (17:03)
[2016-08-05] MEDS: Metoprolol Succinate 25 MG Tab.ER PO SCH (17:04)
[2016-08-05] MEDS: Rivaroxaban 10 MG Tab PO SCH (17:05)
[2016-08-05] MEDS: Simvastatin 20 MG Tab PO SCH (21:49)
[2016-08-05] MEDS: Zolpidem 5 MG Tab PO SCH (21:50)
[2016-08-06] MEDS: Spironolactone 25 MG Tab PO SCH ×2 (07:47→17:05)
[2016-08-06] MEDS: Mupirocin Oint 22 GM Tube TOP SCH ×3 (07:47→17:05)
[2016-08-06] MEDS: Bumetanide 1 MG Tab PO SCH ×2 (07:48→11:47)
[2016-08-06] MEDS: Doxycycline 100 MG Cap PO SCH ×2 (07:50→19:45)
--- NOTE | 2016-08-06 15:05 | PCM.PN ---
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 other physical and the mental capabilities needed to safely propel the manual wheelchair. He weighs 305 pounds. 08/06/16 Lev Hernandez MD No complaints except tired of being here. Wanting to go home. Medication list reviewed with him.
[2016-08-06] MEDS: Digoxin 125 MCG Tab PO SCH (17:06)
[2016-08-06] MEDS: Metoprolol Succinate 25 MG Tab.ER PO SCH (17:07)
[2016-08-06] MEDS: Rivaroxaban 10 MG Tab PO SCH (17:08)
[2016-08-06] MEDS: Simvastatin 20 MG Tab PO SCH (22:16)
[2016-08-06] MEDS: Zolpidem 5 MG Tab PO SCH (22:17)
[2016-08-07] MEDS: Spironolactone 25 MG Tab PO SCH ×2 (07:48→17:41)
[2016-08-07] MEDS: Mupirocin Oint 22 GM Tube TOP SCH ×3 (07:49→17:41)
[2016-08-07] MEDS: Bumetanide 1 MG Tab PO SCH ×2 (07:49→11:34)
[2016-08-07] MEDS: Doxycycline 100 MG Cap PO SCH (07:50)
[2016-08-07] MEDS: Digoxin 125 MCG Tab PO SCH (17:41)
[2016-08-07] MEDS: Metoprolol Succinate 25 MG Tab.ER PO SCH (17:43)
[2016-08-07] MEDS: Rivaroxaban 10 MG Tab PO SCH (17:44)
[2016-08-07] MEDS: Zolpidem 5 MG Tab PO SCH (22:07)
[2016-08-07] MEDS: Simvastatin 20 MG Tab PO SCH (22:07)
[2016-08-08] MEDS: Omeprazole 20 MG Cap.CR PO SCH (08:14)
[2016-08-08] MEDS: Mupirocin Oint 22 GM Tube TOP SCH ×3 (08:15→17:26)
[2016-08-08] MEDS: Spironolactone 25 MG Tab PO SCH ×2 (08:15→17:25)
[2016-08-08] MEDS: Bumetanide 1 MG Tab PO SCH ×2 (08:16→11:20)
[2016-08-08] MEDS: Digoxin 125 MCG Tab PO SCH (17:26)
[2016-08-08] MEDS: Rivaroxaban 10 MG Tab PO SCH (17:28)
[2016-08-08] MEDS: Metoprolol Succinate 25 MG Tab.ER PO SCH (17:28)
[2016-08-08] MEDS: Zolpidem 5 MG Tab PO SCH (21:34)
[2016-08-08] MEDS: Simvastatin 20 MG Tab PO SCH (21:34)
[2016-08-09] MEDS: Mupirocin Oint 22 GM Tube TOP SCH ×3 (07:35→18:24)
[2016-08-09] MEDS: Spironolactone 25 MG Tab PO SCH ×2 (07:36→18:24)
[2016-08-09] MEDS: Bumetanide 1 MG Tab PO SCH ×2 (07:37→12:04)
[2016-08-09] MEDS: Omeprazole 20 MG Cap.CR PO SCH (08:21)
[2016-08-09 08:55] LABS: CHLORIDE,CL 101 mmol/L (98-107); SODIUM,NA 137 mmol/L (136-145)
[2016-08-09] MEDS: Digoxin 125 MCG Tab PO SCH (18:25)
[2016-08-09] MEDS: Metoprolol Succinate 25 MG Tab.ER PO SCH (18:29)
[2016-08-09] MEDS: Rivaroxaban 10 MG Tab PO SCH (18:30)
[2016-08-09] MEDS: Acetaminophen/Codeine 300-30 MG Tab PO PRN (21:38)
[2016-08-09] MEDS: Simvastatin 20 MG Tab PO SCH (21:38)
[2016-08-09] MEDS: Zolpidem 5 MG Tab PO SCH (21:41)
[2016-08-10] MEDS: Spironolactone 25 MG Tab PO SCH (07:43)
[2016-08-10] MEDS: Omeprazole 20 MG Cap.CR PO SCH (07:43)
[2016-08-10] MEDS: Bumetanide 1 MG Tab PO SCH ×2 (07:44→11:29)
[2016-08-10] MEDS: Mupirocin Oint 22 GM Tube TOP SCH ×2 (07:46→11:30)
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
[2016-08-10 12:44] VITALS: BP 124/59
[2016-08-20] MEDS ORDERED: Cyanocobalamin (Vitamin B12) 1,000 MCG/ML SDV IM SCH (08:00)
== END 2016-08-10 12:30 | disposition home health service (06) | DRG 948 ==
LOC: LL.MS 15:00 → LL.SWG 07-30 14:55
PROVIDERS: ADMIT Family Medicine; ATTEND Family Medicine
DX: R53.1 Weakness (principal); J96.11 Chronic respiratory failure with hypoxia; J96.12 Chronic respiratory failure with hypercapnia; S82.202D Unspecified fracture of shaft of left tibia, subsequent encounter for closed fracture with routine healing; S82.201D Unspecified fracture of shaft of right tibia, subsequent encounter for closed fracture with routine healing; S32.019D Unspecified fracture of first lumbar vertebra, subsequent encounter for fracture with routine healing; V89.2XXD Person injured in unspecified motor-vehicle accident, traffic, subsequent encounter; Z98.1 Arthrodesis status; L08.9 Local infection of the skin and subcutaneous tissue, unspecified; B95.61 Methicillin susceptible Staphylococcus aureus infection as the cause of diseases classified elsewhere; F43.21 Adjustment disorder with depressed mood; E66.01 Morbid (severe) obesity due to excess calories; Z68.39 Body mass index [BMI] 39.0-39.9, adult; I10 Essential (primary) hypertension; I25.10 Atherosclerotic heart disease of native coronary artery without angina pectoris; E11.9 Type 2 diabetes mellitus without complications; I48.0 Paroxysmal atrial fibrillation; J44.9 Chronic obstructive pulmonary disease, unspecified; M10.9 Gout, unspecified; Z85.038 Personal history of other malignant neoplasm of large intestine; E88.09 Other disorders of plasma-protein metabolism, not elsewhere classified; F41.8 Other specified anxiety disorders; I49.3 Ventricular premature depolarization; D17.1 Benign lipomatous neoplasm of skin and subcutaneous tissue of trunk; E87.6 Hypokalemia; D51.0 Vitamin B12 deficiency anemia due to intrinsic factor deficiency; M21.371 Foot drop, right foot; N40.0 Benign prostatic hyperplasia without lower urinary tract symptoms; M54.9 Dorsalgia, unspecified; G89.29 Other chronic pain; M15.0 Primary generalized (osteo)arthritis; K59.09 Other constipation; E78.5 Hyperlipidemia, unspecified; I25.2 Old myocardial infarction; H91.90 Unspecified hearing loss, unspecified ear; H54.7 Unspecified visual loss; Z87.891 Personal history of nicotine dependence; Z91.048 Other nonmedicinal substance allergy status; Z79.01 Long term (current) use of anticoagulants; Z92.21 Personal history of antineoplastic chemotherapy; Z92.3 Personal history of irradiation
CPT/HCPCS: 36415; 72080; 73590-50; 80048; 80053; 80162; 81001; 82306; 82550; 82607; 82746; 82803; 83540; 83550; 83735; 84132; 84550; 85025; 85027; 85610; 85730; 87070; 87077; 87086; 87186; 93005; 97032-GP; 97110-GO; 97110-GP; 97112-GP; 97116-GP; 97140-GP; 97161-GP; 97165-GO; 97530-GO; 97530-GP; 97535-GO; A9270-GY; G0283-GP; J3420